=== PATIENT | male | born 1950 | race Caucasian/White ===

== ENCOUNTER 2016-08-28 10:38 | Outpatient (CLI) | payer MEDICARE, BC ==
[~2016-08-28] VITALS: Ht 177.8 cm; Wt 97.7 kg
--- NOTE | ~2016-08-28 | OP ---
PATIENT NAME: EILEEN SCHULER MEDICAL RECORD: [id number] :50 LOCATION:D.CAT ADMISSION DATE: SURGEON: CAYLA JUAREZ M.D. DATE OF OPERATION: 08/28/2016 REFERRING PHYSICIAN: Vipul Hernandez M.D. PROCEDURES PERFORMED: 1. Selective coronary angiography. 2. Aortic root injection. INDICATION: A 66-year-old gentleman presents with aortic stenosis. EQUIPMENT USED: A 5-Namibian JL4, Estevan right, pigtail catheter, AL1 catheter. TECHNIQUE: A 5-Namibian sheath was inserted in retrograde fashion in the right common femoral artery. Next, selective coronary angiography was performed in standard 5-Namibian JL4 and Estevan right. The aortic root injection was performed using pigtail catheter. The valve was crossed using an AL1 catheter and Roadrunner wire. CORONARY ANATOMY: 1. Left main: Left main trunk is large in caliber. It gives rise to the LAD and circumflex. There is no obstruction. 2. LAD: This is a large caliber vessel extending to the apex. The proximal vessel has an ulcerated 89% stenosis. 3. Circumflex: This vessel is moderate in caliber. The first lateral branch has mild irregularities of about 50%. However, the mid segment after the bifurcation point has a hazy 70% stenosis. 4. Right coronary: This vessel is moderate in caliber and dominant. The mid vessel has an eccentric 60% to 70% stenosis. 5. Aortic root: The aortic root appears to be normal in caliber. The aortic valve is heavily calcified. There is decreased movement in the leaflets. There is moderate to severe aortic insufficiency seen. 6. Left ventricle: A left ventriculogram was not performed. However, an AL1 catheter was crossed over to the ventricle using a Roadrunner wire. On pullback, there was a 75-80 mm gradient across the valve. IMPRESSION: 1. Three-vessel coronary artery disease. 2. Severe aortic stenosis by echo with moderate to severe aortic insufficiency on today's angiogram. RECOMMENDATIONS: We will likely proceed with coronary bypass grafting, aortic valve replacement. TRANSINT:[id number] Voice Confirmation ID: [id number] DOCUMENT ID: [id number] OPERATIVE REPORT [id number] EILEEN SCHULERCAYLA MATOS M.D. CC: [id number] DICTATION DATE: 08/28/16 1356 BUILDING CERTIFIER: 04/12/17 2008 DEP CLI 08/28/16 [id number] [place] [address]
--- NOTE | ~2016-08-28 | HEMODYNAMI ---
PATIENT:EILEEN SCHULER MEDICAL RECORD: [id number] : 50 LOCATION:DHOMER ADMISSION DATE: 08/28/16 Generatedon:08/28/201613:51 Patient name: EILEEN SCHULER Patient #: [id number] : 1950 Date of study: 08/28/2016 Page: Of Hemodynamic Procedure Report Patient Data Patient Demographics Procedure consent was obtained First Name: EILEEN Gender: Male Last Name: HARINI : 1950 Patient #: [id number] Age: 66 year(s) Race: Unknown SSN: [id number] Additional ID: [id number] Contact details [address]: [address] [place] [address] [address] [address] State: [place] City: [place] Zip code: [address] Past Medical History Allergies Allergen Reaction Date Comments Reported Other allergy 08/28/2016 Chlorpromazine Admission Admission Data Admission Date: 08/28/2016 Admission Time: 10:38 Arrival Date: 08/28/2016 Arrival Time: 0:00 Admit Source: Other Insurance Payor: Private health insurance, Medicare Height (in.): 62 BSA: 1.96 (m2) Height (cm.): 157.48 BMI: 38.96 (kg/m2) Weight (lbs.): 213 Weight (kg.): 96.62 Lab Results Lab Result Date: 08/28/2016 Lab Result Time: 0:00 Biochemistry Name Units Result Min Max BUN mg/dl 20 --(----)*- 7 18 Creatinine mg/dl 0.8 --(-*--)-- 0.6 1.3 CBC Name Units Result Min Max Hemoglobin g/dl 15.7 --(--*-)-- 13.5 17.5 Procedure Procedure Types Cath Procedure Diagnostic Procedure [facility] w/Coronaries Aortic Root Angiography Miscellaneous Procedures Moderate Sedation up to 15 minutes Procedure Description Procedure Date Procedure Date: 08/28/2016 Procedure Start Time: 13:23 Procedure End Time: 13:50 Procedure Staff Name Function Felipe Quiros MD Performing Physician Johnathon Álvarez RN Nurse Roxy Moreno RT Monitor Jose G Lo RT Scrub Procedure Data Cath Procedure Fluoroscopy Diagnostic fluoroscopy Total fluoroscopy Time: 5.6 time: 5.6 min min Diagnostic fluoroscopy Total fluoroscopy dose: dose: 1008 mGy 1008 mGy Contrast Material Contrast Material Type Amount (ml) Isovue 300 84 Entry Location Entry Primary Successful Side Size Upsize Upsize Entry Closure Succes sful Closure Location (Fr) 1 (Fr) 2 (Fr) Remarks Device Remarks Femoral Right 5 Fr Exoseal artery Estimated blood loss: 10 ml Diagnostic catheters Device Type Used For End Catheter Placement Cordis 5Fr JL 4.0 Procedure Catheter (MP) Cordis 5Fr 3DRC Catheter Procedure (MP) Cordis 5Fr Pigtail Aortic Root Catheter (MP) Angiography Diagnostic Infinity 5Fr Ventriculography AL 1 catheter Procedure Complications No complications Procedure Medications Medication Administration Route Dosage Oxygen NC 2 l/min Lidocaine 2% added to field 20 Heparin Flush Bag added to field 2 bags (1000units/500ml NS) 0.9% NaCl I.V. 100 ml/hr Versed I.V. 1 mg Fentanyl I.V. 50 mcg Versed I.V. 1 mg Fentanyl I.V. 50 mcg Versed I.V. 1 mg Versed I.V. 1 mg Hemodynamics Rest BSA: 1.96 (m2) HGB: 15.7 (g/dl) O2 Consumption: Estimated: 223.33 (ml/min) O2 Co nsumption indexed: Estimated:113.94 (ml/min/m) Heart Rate: 63 (bpm) Pressure Samples Time Site Value (mmHg) Purpose Heart Use Rate(bpm) 13:40 AO 118/74(92) Snapshot 32 13:45 LV 211/14,46 Snapshot 69 13:46 LV 209/16,39 EDP 73 13:46 AO 138/77(102) Pullback 74 13:46 LV 211/14,39 Pullback 74 Gradients Valve Time Site 1 Site 2 Mean SEP/DFP Peak To Heart Use (mmHg) (sec/min) Peak Rate (mmHg) (bpm) Aortic 13:46 LV AO 58 20 73 74 211/14,39 138/77(102) Calculations Valve P-P Mean Valve Index Valve Source Name Gradient Area Flow (cm2) Aortic 73 58 73 58 Snapshots Pre Cath Intra NCS Post Cath Vital Signs Time Heart Resp SPO2 NIBP (mmHg) Rhythm Pain Sedation Rate (ipm) (%) Status Level (bpm) 12:51:18 65 16 97 117/60(74) NSR 0 (11) 10(A) , No pain 12:55:33 63 16 97 109/61(82) NSR 0 (11) 10(A) , No pain 12:59:42 63 21 96 116/59(90) NSR 0 (11) 10(A) , No pain 13:03:52 70 18 96 130/65(96) NSR 0 (11) 10(A) , No pain 13:08:08 65 14 98 129/66(97) NSR 0 (11) 10(A) , No pain 13:12:24 64 15 98 120/66(102) NSR 0 (11) 10(A) , No pain 13:16:34 66 16 98 121/70(98) NSR 0 (11) 10(A) , No pain 13:20:44 69 16 97 122/71(90) NSR 0 (11) 9(A) , No pain 13:24:54 70 15 97 122/73(100) NSR 0 (11) 9(A) , No pain 13:29:02 70 16 96 121/75(95) NSR 0 (11) 9(A) , No pain 13:33:14 74 16 96 128/70(101) NSR 0 (11) 9(A) , No pain 13:37:28 74 15 96 116/70(92) NSR 0 (11) 9(A) , No pain 13:41:35 70 16 96 121/71(96) NSR 0 (11) 9(A) , No pain 13:46:33 75 17 96 115/71(95) NSR 0 (11) 10(A) , No pain Medications Time Medication Route Dose Verified Delivered Reason Notes Effe ctiveness by by 12:52:22 Oxygen NC 2 Felipe Buffie used for l/min Ishaan Álvarez engineer sergeant 12:52:33 Lidocaine 2% added 20ml Felipe Felipe for local to vial Ishaan Quiros MD anesthetic field 12:52:41 Heparin Flush added 2 Felipe Felipe used for Bag to bags Ishaan Quiros MD procedure (1000units/500ml field NS) 12:52:52 0.9% NaCl I.V. 100 Felipe Buffie Per ml/hr Ishaan Álvarez RN physician 13:15:07 Versed I.V. 1 mg Felipe Buffie for Ishaan Álvarez RN sedation 13:15:11 Fentanyl I.V. 50 Felipe Buffie for mcg Ishaan Álvarez RN sedation 13:18:45 Versed I.V. 1 mg Felipe Buffie for Ishaan Álvarez RN sedation 13:18:50 Fentanyl I.V. 50 Felipe Buffie for mcg Ishaan Álvarez RN sedation 13:25:39 Versed I.V. 1 mg Felipe Buffie for Ishaan Álvarez RN sedation 13:45:44 Versed I.V. 1 mg Felipe Buffie for Ishaan Álvarez RN sedation Procedure Log Time Note 12:39:35 Patient Height : 157.48 cm 12:39:40 Patient Weight : 96.62 kg 12:39:40 Admit Source: Other 12:39:42 Arrival Date: 08/28/2016 12:00:00 AM 12:39:51 Insurance Payor : Private health insurance, Medicare 12:40:08 Diagnostic Cath Status : Elective 12:40:45 Johnathon Álvarez RN sent for patient. Start room use. 12:40:47 Time tracking: Regular hours 12:40:52 Plan of Care:Hemodynamics will remain stable., Cardiac rhythm will remain stable., Comfort level will be maintained., Respiratory function will remain adequate., Patient/ family verbilizes understanding of procedure., Procedure tolerated without complication., Recovers from procedure without complications.. 12:43:04 Patient received from Pre/Post Procedure Room to CCL 2 Alert and oriented. Tansferred to table in Supine position. 12:43:06 Warm blankets applied, and marty hugger turned on for patient comfort. 12:43:06 Correct patient and procedure confirmed by team. 12:43:08 Signed procedure consent form obtained from patient. 12:43:24 H&P Date Dictated: 08/21/2016 Within 30 days and on chart., H&P Addendum completed by physician on day of procedure. (MUST COMPLETE FOR ALL OUTPATIENTS). 12:43:28 Pre-procedure instructions explained to patient. 12:43:30 Family in waiting room. 12:43:35 Patient NPO since Midnight. 12:44:01 Patient allergic to Other allergyChlorpromazine 12:44:05 Is the patient allergic to Iodine/contrast media? No. 12:50:09 ECG and BP/O2 sat monitors applied to patient. 12:50:10 Vital chart was started 12:50:11 Baseline sample Acquired. 12:50:17 Rhythm: sinus rhythm 12:50:18 Full Disclosure recording started 12:52:22 Oxygen 2 l/min NC was administered by Johnathon Álvarez RN; used for procedure; 12:52:33 Lidocaine 2% 20ml vial added to field was administered by Felipe Quiros MD; for local anesthetic; 12:52:41 Heparin Flush Bag (1000units/500ml NS) 2 bags added to field was administered by Fleipe Quiros MD; used for procedure; 12:52:52 0.9% NaCl 100 ml/hr I.V. was administered by Johnathon Álvarez RN; Per physician; 12:55:39 Is patient on blood thinner?No 12:55:42 Patient diabetic? No. 12:55:47 Snore? No 12:55:48 Sleep apnea? No 12:55:52 Dentures? No ? 12:56:01 Patient pain scale 0/10 ?. 12:56:29 IV patent on arrival in left forearm with 0.9% NaCl at [facility]. 12:56:48 Lab results completed and on chart. 12:56:53 Right groin area was prepped with chlora-prep and draped in sterile fashion 12:56:55 Alarms reviewed by R. N. 12:57:00 Sharps counted by scrub and verified by R.N. 12:57:00 Physician paged 12:58:30 Physician arrived 12:59:39 Lab Result : Creatinine 0.8 mg/dl 12:59:39 Lab Result : BUN 20 mg/dl 12:59:39 Lab Result : Hemoglobin 15.7 g/dl 13:00:30 Right groin site verified by team. 13:00:35 Physical assessment completed. ASA score P 2 - A patient with mild systemic disease as per Felipe Quiros MD. 13:00:40 Sedation plan: IV Moderate Sedation Versed, Fentanyl 13:00:47 Use device set Femoral Dx 13:00:48 Acist Syringe opened to sterile field. 13:00:48 Bag Decanter opened to sterile field. 13:00:49 Medline Cath Pack opened to sterile field. 13:00:49 Terumo 5Fr [place] Sheath opened to sterile field. 13:00:49 [place] 260cm J .035 wire opened to sterile field. 13:00:51 Acist Hand Control opened to sterile field. 13:00:52 Acist Manifold opened to sterile field. 13:00:52 Diagnostic Infinity 5Fr Multipack catheter opened to sterile field. 13:00:53 Tegaderm 4 x 4 opened to sterile field. 13:04:01 Zero performed for pressure channel P1 13:04:15 Zero performed for pressure channel P1 13:04:21 Zero performed for pressure channel P1 13:14:26 --------ALL STOP TIME OUT------ 13:15:07 Versed 1 mg I.V. was administered by Johnathon Álvarez RN; for sedation; 13:15:11 Fentanyl 50 mcg I.V. was administered by Johnathon Álvarez RN; for sedation; 13:18:45 Versed 1 mg I.V. was administered by Johnathon Álvarez RN; for sedation; 13:18:50 Fentanyl 50 mcg I.V. was administered by Johnathon Álvarez RN; for sedation; 13:23:22 Procedure started. 13:23:25 Local anesthetic to right femoral artery with Lidocaine 2% by Felipe Quiros MD.INITIAL ACCESS ONLY 13:25:39 Versed 1 mg I.V. was administered by Johnathon Álvarez RN; for sedation; 13:25:48 A 5 Fr sheath was inserted into the Right Femoral artery 13:26:05 A Cordis 5Fr JL 4.0 Catheter (MP) was advanced over the wire and used for Procedure. 13:27:20 LCA angiography performed. 13:27:53 Catheter removed. 13:28:02 A Cordis 5Fr 3DRC Catheter (MP) was advanced over the wire and used for Procedure. 13:29:30 Catheter removed. 13:29:47 A Cordis 5Fr Pigtail Catheter (MP) was advanced over the wire and used for Aortic Root Angiography. 13:31:54 Aortic Root visualized 13:32:25 Catheter removed. 13:32:43 A Diagnostic Infinity 5Fr AL 1 catheter was advanced over the wire and used for Ventriculography. 13:32:45 Cook Bentson 260cm 0.035 guide wire opened to sterile field. 13:44:[address] RO[address]NER 260 .035 glide wire opened to sterile field. 13:44:55 Bentson unable to cross valve, exchanged for Roadrunner. 13:45:44 Versed 1 mg I.V. was administered by Johnathon Álvarez RN; for sedation; 13:46:43 LV hemodynamics recorded. 13:46:59 Catheter removed. 13:47:10 Sheath removed intact; hemostasis achieved with Exoseal to the Right Femoral artery. 13:47:19 Cordis 5Fr Exoseal opened to sterile field. 13:47:21 Procedure ended.(Physican Out) 13:47:34 Fluoroscopy time 05.60 minutes. 13:47:41 Fluoroscopy dose: 1008 mGy 13:47:41 Flurop Dose total: 1008 13:47:46 Contrast amount:Isovue 300 84ml. 13:47:48 Sharps counted by scrub and verified by R.N. 13:47:49 Insertion/operative site no bleeding no hematoma. 13:47:53 Post right femoral artery:stable 13:47:56 Post Procedure Pulses reassessed and unchanged 13:48:02 Post procedure rhythm: unchanged. 13:48:05 Estimated blood loss: 10 ml 13:48:07 Post procedure instruction explained to patient.Patient verbalizes understanding. 13:48:54 Procedure type changed to Cath procedure, Diagnostic procedure, LHC, LHC w/Coronaries, Aortic Root Angiography, Miscellaneous Procedures, Moderate Sedation up to 15 minutes 13:49:20 Procedure and supply charges have been captured, reviewed, submitted and are correct. 13:49:45 Procedure Complication : No complications 13:49:47 Vital chart was stopped 13:49:49 See physician's report for complete and final results. 13:49:53 Report given to Pre/Post Procedure Room. 13:50:03 Patient transfered to Pre/Post Procedure Room with Stretcher. 13:50:06 Procedure ended. 13:50:06 Full Disclosure recording stopped 13:50:15 End room use (Document Last) Device Usage Item Name Manufacture Quantity Catalog Hospital Part Current Minimal Lo t# / Number Charge Number Stock Stock Serial# Code [facility] 1 [id number] 753889 227922 899612 20 Syringe Medical Systems Inc Bag Microtek 1 2002S 770644 36528 143030 5 Decanter Medical Inc. Medline Cardinal 1 [id number] 885201 45388 307302 5 Cath Pack Health Terumo 5Fr Terumo 1 [id number] 058922 770346 009077 [address] [place] 1 864462 778468 344286 618124 30 260cm J .035 wire Acist Hand Acist 1 65327 267387 872076 719089 5 Control Medical Systems Inc Acist Acist 1 68885 055899 830312 916365 5 Manifold Medical Systems Inc Diagnostic Cardinal 1 [id number] 727542 30010 061024 30 Infinity Health 5Fr Multipack catheter Tegaderm 4 3M 1 1626W 148893 830869 827927 5 x 4 Cordis 5Fr Cardinal 1 673790 5 JL 4.0 Health Catheter (MP) Cordis 5Fr Cardinal 1 745479 5 3DRC Health Catheter (MP) Cordis 5Fr Cardinal 1 205137 5 Pigtail Health Catheter (MP) Diagnostic Cardinal 1 193242T 197784 849404 535422 15 Ballooning Nest Eggsity Health 5Fr AL 1 catheter Cook Cook Medical 1 Z76885 463759 472542 671918 4 Bentson 260cm 0.035 guide wire Cook Cook Medical 1 [id number] 847734 089282 5 RO[address] 260 .035 glide wire Cordis 5Fr Cardinal 1 EX500 736878 326492 147139 10 TripConnect Health Signature Audit Vance Stage Time Signature Unsigned Intra-Procedure 08/28/2016 Roxy Moreno 1:51:26 PM RT(R) Signatures Monitor : Roxy Moreno Signature : RT Date : Time : [facility] [address] [place] [address]
[2016-08-28] MEDS ORDERED: INVOKANA300 MG PO (11:13)
[2016-08-28] MEDS ORDERED: ZETIA10 MG PO (11:14)
[2016-08-28] MEDS ORDERED: ZOCOR40 MG PO (11:14)
[2016-08-28] MEDS ORDERED: GLUCOVANCE 5/501 TAB PO (11:15)
[2016-08-28] MEDS ORDERED: ACCUPRIL20 MG PO (11:15)
[2016-08-28 11:22] VITALS: BP 109/54; Ht 177.8 cm; Wt 97.7 kg
[2016-08-28 11:39] LABS: BASOPHILS 0.5 % (0.0-2.0); EOSINOPHILS 3.7 % (0-7); HEMATOCRIT 46.6 % (42.0-54.0); HEMOGLOBIN 15.7 g/dL (13.5-17.5); IMMATURE GRANULOCYTES 0.2 % (0-5); LYMPHOCYTES 26.8 % (15-50); MCH 31.5 pg (26.0-34.0); MCHC 33.7 g/dL (31.0-37.0); MCV 93.4 fL (80.0-100.0); MEAN PLATELET VOLUME 12.1 fL (7.4-10.4); MONOCYTES 8.1 % (2-11); NEUTROPHILS 60.7 % (40-80); PLATELET COUNT 152 10x3/uL (130-400); RBC 4.99 10x6/uL (4.20-6.10); RDW 12.6 % (11.5-14.5); WBC 6.2 10x3/uL (4.8-10.8)
[2016-08-28 12:09] LABS: CALC OSMOLALITY 276 mosm/kg (275-300); CALCIUM 9.3 mg/dL (8.5-10.1); CARBON DIOXIDE 23.3 mmol/L (21.0-32.0); CHLORIDE - SERUM 102 mmol/L (98-107); CREATININE - SERUM 0.8 mg/dL (0.6-1.3); GLUCOSE 177 mg/dL (74-106); POTASSIUM - SERUM 4.6 mmol/L (3.5-5.1); SODIUM 135 mmol/L (136-145); UREA NITROGEN 20 mg/dL (7-18); eGFR NON AFRICAN AMERICAN > 90 mL/min (90-120)
--- NOTE | 2016-08-28 15:46 | NUR ---
1415-RIGHT GROIN -CDI, NO HEMATOMA OR BLEEDING NOTED, SOFT TO TOUCH 1445-NO CHANGE IN RIGHT GROIN, RESTING WITH FAMILY AT SIDE
== END 2016-08-28 16:30 | disposition home or self-care (01) ==
LOC: D.CATH 10:38
PROVIDERS: Internal Medicine Cardiovascular Disease
DX: I35.2 Nonrheumatic aortic (valve) stenosis with insufficiency (principal); I25.10 Atherosclerotic heart disease of native coronary artery without angina pectoris

== ENCOUNTER → 2016-09-02 14:01 | Outpatient (CLI) | payer MEDICARE, BC ==
[2016-08-28 11:22] VITALS: BMI 30.9
[~2016-09-02 14:01] MED LIST: ACCUPRIL20 MG PO; GLUCOVANCE 5/501 TAB PO; INVOKANA300 MG PO; ZETIA10 MG PO; ZOCOR40 MG PO
[2016-09-03 10:19] LABS: HEPATITIS C ANTIBODY <0.1 (0.0-0.9)
== END | disposition home or self-care (01) ==
LOC: D.LAB 14:01
PROVIDERS: Internal Medicine Cardiovascular Disease
DX: Z01.812 Encounter for preprocedural laboratory examination (principal)

== ENCOUNTER 2016-09-11 06:06 | Inpatient (IN) | payer MEDICARE, BC ==
--- NOTE | 2016-09-07 12:23 | HP ---
PATIENT: EILEEN SCHULER MEDICAL RECORD: [id number] ACCOUNT: [id number] LOCATION:[facility] : 50 ADMISSION DATE: 09/11/16 HISTORY AND PHYSICAL EXAMINATION EILEEN Castro (66yo, M) ID# [id number]. Date/Time09/02/2016 10:[id number] Dept[facility] ClinicProviderEDJERRY SARABIA MDInsuranceMed Primary[place] Insurance # : [id number] Referring Provider Name : DARIA AJ Employer Name : UNKNOWN Med Secondary: [place]LE[place]) Insurance # : [id number] Employer Name : UNKNOWN Prescription: CMX - Member is eligible. Chief Complaint Aortic stenosis, Coronary artery disease Patient's Care Team Referring Provider (): DARIA AJ: [address] [id number], , Brineyard Supervisor: CAYLA JUAREZ MD: [address] [place] [id number], , Vitals BP:120/70 sitting R arm 09/02/2016 12:22 pm 110/70 sitting L arm 09/02/2016 12:22 pmHR:80R/R 09/02/2016 12:22 pmHt:5 ft 10 in 09/02/2016 12:20 pmWt:215 lbs 09/02/2016 12:20 pmNotes:Murmur 09/02/2016 12:22 pmBMI:30.8 09/02/2016 12:20 pmAllergies Reviewed Allergies CHLORPROMAZINEMedications Reviewed Medications ciprofloxacin 500 mg /29/16 filledCaremarkdiphenoxylate-atropine 2.5 mg-0.025 mg reetpz97/29/16 filledCaremarkInvokana 300 mg ajezbo19/06/17 filledCaremarkquinapril 20 mg ujlcni21/01/17 filledCaremarksimvastatin 40 mg kppseq75/01/17 filledCaremarkZetia 10 mg kebzhu89/02/17 filledCaremarkProblems Reviewed Problems Coronary arteriosclerosis - Onset: 09/02/2016 Aortic valve stenosis - Onset: 09/02/2016 Family History Discussed Family History Father- Coronary arteriosclerosisSister- Coronary arteriosclerosisBrother- Coronary arteriosclerosisSocial History Discussed Social History Cardiology Family history of heart disease?: Y Smoking Status: Former smoker High Cholesterol: Y High blood pressure: Y Diabetes: Y Diet: Diabetic Is blood transfusion acceptable in an emergency?: Y Surgical History Reviewed Surgical History pt states "none" Past Medical History Discussed Past Medical History Chest Pain: Y Coronary Artery Disease: Y Diabetes: Y Heart Disease: Y Heart Murmur: Y Hyperlipidemia: Y Valve disease: Y - Aortic stenosis Documents for Discussion N/A Screening None recorded. HPI Coronary Artery Disease F/U Reported by patient. Severity: symptoms are improving; no chest discomfort with daily activities; has not needed to use Nitroglycerin Context: non-smoker Associated Symptoms: no chest pain; HISTORY AND PHYSICAL [id number] EILEEN SCHULER no neck pain; no left arm pain; no dyspnea with exertion; no sweating; no nausea; no stress Valvular Heart Disease Reported by patient. Context: aortic stenosis Associated Symptoms: none severe aortic stenosis severe coronary artery disease ROS Patient reports exercise intolerance but reports no fever, no night sweats, no significant weight gain, and no significant weight loss. He reports arthralgias/joint pain but reports no muscl e aches, no muscle weakness, no back pain, and no swelling in the extremities. He reports no dry eyes, no irritation, and no vision change. He reports no difficulty hearing and no ear pain. He reports no frequent nosebleeds and no nose/sinus problems. He r eports no sore throat, no bleeding gums, no snoring, no dry mouth, no mouth ulcers, no oral abnormalities, and no teeth problems. He reports no jugular vein distension and no swollen glands. He reports no chest pain, no arm pain on exertion, no shortness o f breath when walking, no shortness of breath when lying down, no palpitations, and no known heart murmur. He reports no cough, no wheezing, no shortness of breath, and no coughing up blood. He reports no abdominal pain, no vomiting, normal appetite, no d i arrhea, not vomiting blood, no nausea, and no constipation. He reports no incontinence, no difficulty urinating, no hematuria, and no increased frequency. He reports no abnormal mole, no jaundice, and no rashes. He reports no loss of consciousness, no wea k ness, no numbness, no seizures, no dizziness, and no headaches. He reports no depression, no sleep disturbances, feeling safe in relationship, and no alcohol abuse. He reports no fatigue. He reports no swollen glands and no bruising. He reports no runny n ose, no sinus pressure, no itching, no hives, and no frequent sneezing. ROS as noted in the HPI Physical Exam Patient is a 66-year-old male. Constitutional: General Appearance well nourished and developed and healthy-appearing. Level of Distress NAD. Ambulation ambulating normally. Cardiovascular: Apical Impulse not displaced or no thrill. Heart Auscultation normal s1 and s2, no rubs or gallops, and RRR and murmur (aortic stenosis). Arterial Pulses no abdominal aorta bruits, femoral bruits, or popliteal bruits and 2+ bilateral, carotid 2+ bilateral, femoral 2+ bilateral, popliteal 2+ bilateral, and dorsalis pedis 2+ bilateral. Edema no edema or varicosities. Lungs: Repiratory Effort no dyspnea. Percussion no hyperresonance or dullness or flatness. Auscult ation no wheezing, rhonchi, or rales / crackles and breathing sounds normal, good air movement, and CTA except as noted. Abdomen: Bowl Sounds normal. Inspection and Palpation no tenderness, guarding, masses, or rebound tenderness and soft and non-distended. Liver non-tender and no hepatomegaly. Spleen non-tender and no splenomegaly. Hernia none palpable. Musculoskeletal System: Gait And Stance normal gait and stance. Digits and Nails normal nails and no cyanosis. Neurologic: Cranial Nerves grossly intact. Reflexes DTRs 2+ bilaterally throughout. Sensation grossly intact. Lymph Nodes: Lymph Nodes no cervical LAD, supraclavicular LAD, axillary LAD, or HISTORY AND PHYSICAL [id number] EILEEN SCHULER inguinal LAD. Eyes: Lids and Conjunctivae no discharge or pallor and non-injected. Pupils PERRLA. Cornea grossly intact. EOM EOMI. Lens clear. Sclerae non-icteric. Neck: Neck no masses or enlarged lymph nodes and supple, trachea midline, and carotid bruits (transmitted aortic murmur). Thyroid no enlargement or nodules and non-tender. Skin: Inspection and Palpation no rash, lesions, ulcers, jaundice, or abnormal nevi. Assessment / Plan aortic valve replacement Coronary artery bypass 1. Aortic valve stenosis I35.0: Nonrheumatic aortic (valve) stenosis AORTIC VALVE STENOSIS: CARE INSTRUCTIONS 2. Coronary arteriosclerosis I25.10: Atherosclerotic heart disease of [place] coronary artery without angina pectoris Discussion Notes I have discussed his disease process with him in detail as well as the alternative methods of treatment have discussed aortic valve replacement and coronary artery bypass including the expected benefits and risk which included bleeding, infection, stroke, loss of limb, and . We also discussed the imponderables of an operation and risk. We discussed the convalescence and the expected benefits. He would like to proceed with planned procedure. RAUDEL SARABIA MD at 1223 CC: [id number] DICTATION DATE: 09/02/16 1050 OCCUPATIONAL THERAPIST PER DIEM: YUN 09/03/16 0945 PRE IN [facility] [address] [place] [address]
[2016-09-10 14:38] LABS: BASOPHILS 0.3 % (0-2); EOSINOPHILS 3.5 % (0-7); HEMATOCRIT 46.8 % (42.0-54.0); HEMOGLOBIN 15.9 g/dL (13.5-17.5); IMMATURE GRANULOCYTES 0.2 % (0-5); MCH 31.6 pg (26.0-34.0); MEAN PLATELET VOLUME 12.6 fL (7.4-10.4); MONOCYTES 7.2 % (2-11); NEUTROPHILS 63.8 % (40-80); PLATELET COUNT 160 10x3/uL (130-400); RBC 5.03 10x6/uL (4.20-6.10); RDW 12.5 % (11.5-14.5); WBC 6.6 10x3/uL (4.8-10.8)
[2016-09-10 14:55] LABS: APTT 22.9 SECONDS (22.8-39.4); INR 0.89 (0.85-1.17); PROTIME 11.8 SECONDS (11.6-15.0)
[2016-09-10 15:05] LABS: APPEARANCE CLEAR (CLEAR); BILIRUBIN NEGATIVE (NEGATIVE); COLOR YELLOW (YELLOW); GLUCOSE 500 mg/dL (NEGATIVE); KETONE NEGATIVE (NEGATIVE); LEUKOCYTE ESTERASE NEGATIVE (NEGATIVE); NITRITE NEGATIVE (NEGATIVE); PROTEIN NEGATIVE (NEGATIVE); SPECIFIC GRAVITY 1.015 (1.005-1.020); UROBILINOGEN NORMAL (NORMAL)
[2016-09-10 15:15] LABS: ALKALINE PHOSPHATASE 45 U/L (46-116); ALT (SGPT) 19 U/L (10-68); BILIRUBIN - TOTAL 0.31 mg/dL (0.2-1.3); CALC OSMOLALITY 286 mosm/kg (275-300); CALCIUM 9.3 mg/dL (8.5-10.1); CARBON DIOXIDE 25.8 mmol/L (21.0-32.0); CHLORIDE - SERUM 103 mmol/L (98-107); CHOLESTEROL, TOTAL 164 mg/dL (0-200); PHOSPHOROUS 4.1 mg/dL (2.5-4.9); POTASSIUM - SERUM 4.1 mmol/L (3.5-5.1); PROTEIN - SERUM 7.4 g/dL (6.4-8.2); SODIUM 139 mmol/L (136-145); T4 THYROXIN - FREE 0.87 ng/dL (0.76-1.46); THYROID STIMULATING HORMONE 1.73 uIU/mL (0.36-3.74); UREA NITROGEN 18 mg/dL (7-18); URIC ACID 4.3 mg/dL (2.6-7.2); eGFR NON AFRICAN AMERICAN 79 mL/min (90-120)
[2016-09-10 15:16] LABS: GLUCOSE 225 mg/dL (74-106)
[2016-09-10 15:27] LABS: HEMOGLOBIN A1C 7.6 % (4.8-6.0)
[2016-09-10 15:52] LABS: COLD SCREEN @ 4 DEGREES 1+ (NEGATIVE); COLD SCREEN ROOM TEMP NEGATIVE (NEGATIVE)
[2016-09-11] VITALS (27 sets, daily range): BP systolic 92–130; BP diastolic 56–76; BMI 29.8
[~2016-09-11] VITALS: Ht 177.8 cm; Wt 108.2 kg
[~2016-09-11 06:06] MED LIST changes: +CENTRUM MEN'S1 EACH PO; +FISH OIL 1,0001 CA1 PO; +LOW DOSE ASPIRI81 M1 PO; +NIASPAN500 MG PO; +VITAMIN B COMPL1 TAB PO; +VITAMIN E600 UNIT PO
[2016-09-11 07:47] LABS: PLT FUNCT.(P2Y12) PLAVIX 259 PRU (194-418)
[2016-09-11 17:19] LABS: HEMOGLOBIN 9.3 g/dL (13.5-17.5); MCH 30.9 pg (26.0-34.0); MCHC 33.2 g/dL (31.0-37.0); MEAN PLATELET VOLUME 11.7 fL (7.4-10.4); PLATELET COUNT 56 10x3/uL (130-400); RBC 3.01 10x6/uL (4.20-6.10); RDW 12.5 % (11.5-14.5)
[2016-09-11 17:29] LABS: PLATELET ESTIMATE DECREASED
[2016-09-11 17:31] LABS: APTT 40.2 SECONDS (22.8-39.4); INR 1.72 (0.85-1.17); PROTIME 20.2 SECONDS (11.6-15.0)
[2016-09-11 17:35] LABS: CREATININE - SERUM 0.8 mg/dL (0.6-1.3); SODIUM 155 mmol/L (136-145); eGFR NON AFRICAN AMERICAN > 90 mL/min (90-120)
[2016-09-11 17:40] LABS: CALC OSMOLALITY 307 mosm/kg (275-300); GLUCOSE 117 mg/dL (74-106); POTASSIUM - SERUM 3.1 mmol/L (3.5-5.1); UREA NITROGEN 12 mg/dL (7-18)
[2016-09-11 17:43] LABS: CALCIUM 5.6 mg/dL (8.5-10.1); CHLORIDE - SERUM 119 mmol/L (98-107)
--- NOTE | 2016-09-11 17:43 | NUR ---
PT ARRIVED BY BED FROM OR. SWITCHED TO ICU MONITORS. PT'S TEMP 36.2 DEGREES CELCIUS. PLACED ON BARIHUGGER. BILATERAL SOFT WRIST RESTRAINTS APPLIED AFTER ARRIVAL. WAITING ON FFP TO THAW FROM LAB TO INFUSE. MODERATE AMOUNT OF BLOODY DRAINAGE NOTED IN ANTERIOR CHEST TUBE. DR. SARABIA AWARE AND DR. MULTANI WITH ANESTHESIA AT BEDSIDE.
--- NOTE | 2016-09-11 18:15 | NUR ---
DR. SARABIA AT BEDSIDE WITH PT'S FAMILY. UPDATED THEM ON PT'S STATUS.
--- NOTE | 2016-09-11 19:10 | NUR ---
CALLED [facility]ANNA[facility] BELLAMY APN, INFORMED OF CONSULT FOR PT WITH DR. AJ, "DR. AJ WILL SEE HIM TOMORROW."
[2016-09-11 19:14] LABS: HEMATOCRIT 32.2 % (42.0-54.0); MCH 30.6 pg (26.0-34.0); MCHC 34.2 g/dL (31.0-37.0); MEAN PLATELET VOLUME 10.9 fL (7.4-10.4); RBC 3.59 10x6/uL (4.20-6.10); RDW 14.1 % (11.5-14.5)
--- NOTE | 2016-09-11 19:14 | NUR ---
SPOKE WITH DR. VEE TO INFORM OF CONSULT, "WILL SEE HIM TOMORROW, THANK YOU."
[2016-09-11 19:19] LABS: MCV 89.7 fL (80.0-100.0); WBC 9.6 10x3/uL (4.8-10.8)
--- NOTE | 2016-09-11 19:20 | NUR ---
REPORT RECIEVED. ASSESSMENT COMPLETE. DR SARABIA AT BEDSIDE. NO NEW ORDERS. PT AWAKE FOLLOWS SIMPLE COMMNADS DENIES PAIN. EYES PERRLA 3MM BRISK. ETT OGT TAPED SECURED OGT PATENT VIA AUSCULTATION. OGT TO LIS, HERNANDEZ BILE NOTED. ETT 7.0 23 AT LIP VENT A/C FIO2 75% RR 18 SET RATE OF 14. TV 700 PEEP 12. O2 SAT 100% RUL RML DIONICIO FINE CRACKLES HEARD, BILAT LOWER LOBES DEMINISHED. R JUGULAR [place] PATENT DRSG CDI AT 50, LOCKED AND SECURED. R SUBCLAVIAN CVL PATENT REFER TO FLOW SHEET FOR INFUSIONS. DRSG CDI. R RADIAL A LINE PATENT STRONG BRACHIAL PULSE PRESENT +2 EXTREMETY PINK WITH GOOD SENSATION WRIST PROTECTOR ON, GOOD WAVEFORM BP 101/62. MIDSTERNAL DRSG CDI SUBSTERNAL DRSG TPM WIRE SITE SECURED VVI 50 V[address] X3 PATENT BLOODY DRAINAGE NOTED NO AIRLEAK NOTED AT THIS TIME. R LEG DRSG PATENT ROBERT X2 NOTED BLOODY DRAINGE NOTED, COMPRESSED. BILAT PEDAL PULSES PALP +2. NO EDEMA NOTED X4 EXTREMETIES. BS HYPOACTIVE X4 ABD DISTENDED. ROSAS PATENT ALEXIA URINE NOTED. TEMP VIA ROSAS 37.2 DEGREES CELCIUS.
--- NOTE | 2016-09-11 20:30 | NUR ---
DR SARABIA UPDATE VIA T. NEW ORDERS RECIEVED.
[2016-09-11 20:32] LABS: PROTIME 15.4 SECONDS (11.6-15.0)
[2016-09-11 20:33] LABS: INR 1.23 (0.85-1.17)
--- NOTE | 2016-09-11 21:20 | NUR ---
FAMILY AT BEDSIDE. GIVEN UPDATE.
--- NOTE | 2016-09-11 23:14 | NUR ---
ABGS REVIEWED. POTASSIUM 3.7 TREATED.
--- NOTE | 2016-09-11 23:18 | NUR ---
REASSESSMENT COMPLETE PER FLOW SHEET. VSS. PT RESTING COMFORTABLY. VENT SETTINGS NOW SIMV RATE OF 10 FIO2 40% PEEP 10 PS 10 TV 700 O2 SAT 98% PT RR 13. NO FURTHER NEW FINDINGS AT THIS TIME. WILL CONTINUE TO MONITOR.
[2016-09-12] VITALS (89 sets, daily range): BP systolic 98–136; BP diastolic 47–64; Ht 177.8 cm; Wt 108.2 kg
--- NOTE | 2016-09-12 02:59 | NUR ---
ABG REVIEWED. CPAP TRIALS STARTED. TOLERATING WELL. ELECTROLYTES REVIEWED. POTASSIUM 3.3. POTASSIUM ADM PER PROTOCOL. NEEDS MET.
--- NOTE | 2016-09-12 03:28 | NUR ---
REASSESSMENT COMPLETE PER FLOW SHEET NO NEW FINDINGS. PT TOLERATING CPAP WELL. RESTING COMFORTABLY. WILL CONTINUE TO MONITORL
--- NOTE | 2016-09-12 04:30 | NUR ---
PT EXTUBATED WITHOUT DIFFICULTY. RESTRAINTS REMOVED. VSS. WILL CONTINUE TO MONITOR.
--- NOTE | 2016-09-12 05:04 | NUR ---
EXTUBATION TIME 0430. TOLERATES WELL. IS ENCOURAGED GOAL 1250 MET. STRONG PRODUCTIVE COUGH PRESENT. SUPPOSITORY TYLENOL ADM FOR TEMP OF 38.8 C VIA ROSAS. GIVEN ICE CHIPS TOLERATES WELL. FAMILY GIVEN UPDATE AT BEDSIDE. NEEDS EMT
--- NOTE | 2016-09-12 05:35 | NUR ---
PROOF SORTER STARTED PT EDUCATION GIVEN. STATES UNDERSTANDING. VSS NO NEW CHANGES. O2 VIA NC 5L O2 SAT 96% RR 14 NONLABORED. WILL CONTINUE TO MONITOR WILL CONTINUE TO MONITOR.
--- NOTE | 2016-09-12 05:57 | NUR ---
POTASSIUM REVIEWED FROM AM ABG 3.5 WILL ADM REPLACEMENT K PER ORDER.
[2016-09-12 06:17] LABS: MCHC 34.1 g/dL (31.0-37.0); MCV 87.9 fL (80.0-100.0); MEAN PLATELET VOLUME 11.3 fL (7.4-10.4); RBC 2.9 10x6/uL (4.20-6.10); RDW 15.4 % (11.5-14.5)
[2016-09-12 06:27] LABS: HEMATOCRIT 25.5 % (42.0-54.0); HEMOGLOBIN 8.7 g/dL (13.5-17.5); WBC 4.9 10x3/uL (4.8-10.8)
[2016-09-12 06:56] LABS: ALBUMIN 3.2 g/dL (3.4-5.0); BILIRUBIN - TOTAL 1.53 mg/dL (0.2-1.3); CALCIUM 8.6 mg/dL (8.5-10.1); CARBON DIOXIDE 27.9 mmol/L (21.0-32.0); CREATININE - SERUM 1.2 mg/dL (0.6-1.3); POTASSIUM - SERUM 3.9 mmol/L (3.5-5.1); PROTEIN - SERUM 5.3 g/dL (6.4-8.2)
--- NOTE | 2016-09-12 07:00 | NUR ---
REC'D CARE OF PT. A&O X3.
--- NOTE | 2016-09-12 07:21 | NUR ---
GIVING 5 MEQ OF KCL VIA BURETROL AT DISTAL PORT OF [place] FOR A K LEVEL OF 3.9
--- NOTE | 2016-09-12 07:23 | NUR ---
TAKING SIPS OF H20 WITHOUT DIFFICULTY.
--- NOTE | 2016-09-12 07:24 | NUR ---
PULLING 1250 ON IS
--- NOTE | 2016-09-12 07:24 | NUR ---
INITIAL ASSESSMENT COMPLETED. A&O X3. ON 4L O2 VIA NC SATTING 94%. RR 20 EVEN AND UNLABORED. NO DISTRESS. RIGHT IJ SG. LOCKED X2 AT 50 CM. WEDGE SYRINGE IS LOCKED. BURETROL WITH KCL AND MORPHINE TELEHEALTH COORDINATOR, 1 MG Q 10 MIN, 24 MG Q 4H LO AT DISTAL PORT OF RIGHT IJSG. DOOPAMINE AND PLASMALYTE INFUSING AT PROXIMAL INFUSION PORT OF SG. ZINACEF AND INSULIN INFUSING AT RIGHT SCDL SEPERATED BY THREE PRONG ADAPTER.NEOSYNEPHERINE INFUSING INDEPENDENTLY AT PROXIMAL INJECTATE PORT OF SG. CVP LEVELED AND ZEROED. BEING MONITORED AT RIGHT IJSG PROXIMAL INJECTATE PORT. RIGHT RADIAL VAL. LEVELED AND ZEROED. BP WITHIN ESTABLISHED PARAMETERS. WRIST PROTECTOR IN PLACE. DRSG AT RIGHT IJSG AND RIGHT SCDL CD&I. BIOPATCH IN PLACE X2. ORANGE STERILE CAPS IN PLACE. MIDSTERNAL DRSG CD&I. MEDIASTINAL CT X2 TO 20 CM SUCTION. NO AIR LEAKS. LEFT PLEURAL CT TO 20 CM SUCTION. NO AIR LEAKS. INDICATOR + FOR SUCTION AT ATRIUM CONTAINER X3. BLOODY DRAINAGE PRESENT AT CT CONTAINERS. TEMP PACER VVI 50, VMA 10, SENSITIVITY 2.0. SENSING ONLY. PACER WIRES PROP SECURED X2 DRSG CD&I. BIOPATCH SECURED AT ENTRY SITE X2. RIGHT LEG HARVEST SITES WITH COBAN DRSG CD&I. ROBERT DRAIN X2 AT RIGHT LEG, STRIPPED. BLOODY DRAINAGE IN BOTH BULBS. BULBS COMPRESSED X2. CRITICORE ROSAS TO GRAVITY WITH CL Y URINE PRESENT. GREATER THAN 50CC PER HOUR. TEDS, SCD'S. MCCOY. FOLLOWS COMMANDS. PPP. SEE FLOW SHEET FOR ADDITIONAL ASSESSMENT.
--- NOTE | 2016-09-12 08:42 | NUR ---
DR. SARABIA AT BEDSIDE. WEAN KOFI OFF THEN DOPAMINE.
--- NOTE | 2016-09-12 08:59 | NUR ---
TEACHING DONE ON IMPORTANCE OF PAIN CONTROL. IF PAIN IS NOT UNDER CONTROL HE WILL NOT COUGH AND DEEP BREATH THE WAY HE SHOULD. ENCOURAGED USE OF MORPHINE CHANGER FIXER.
--- NOTE | 2016-09-12 09:07 | NUR ---
PULLS [phone] ON IS. ENCOURAGED COUGH AND DEEP BREATHING. ENCOURAGED USE OF RECEPTION.
--- NOTE | 2016-09-12 09:08 | NUR ---
FAMILY AT BEDSIDE. UPDATED.
--- NOTE | 2016-09-12 09:22 | NUR ---
WEANING KOFI OFF. DECREASED TO 18 ML/HR. BP 122/56.
--- NOTE | 2016-09-12 09:33 | NUR ---
AT BEDSIDE. PT. TAKING ICE CHIPS AND SIPS H20 WITHOUT DIFFICULTY. ENCOURAGED COUGH AND DEEP BREATHING.
--- NOTE | 2016-09-12 09:47 | NUR ---
IVF DECREASED TO 30 CC PER HOUR
--- NOTE | 2016-09-12 09:56 | NUR ---
DUAL ATRIUM CT CANISTER CHNAGED OUT USING STERILE TECHNIQUE. HOOKED BACK TO 20 CM SUCTION. NO AIR LEAK.
--- NOTE | 2016-09-12 10:04 | NUR ---
SHIFTS SELF IN BED. DOING INDEPENDENT ROM TO UPPER EXT.
--- NOTE | 2016-09-12 10:06 | NUR ---
RESTING WITH EYES CLOSED. VSS. CONTINUES ON 4L 02 VIA NC. SATTING 96%. RR 16 EVEN AND UNLABORED. NO DISTRESS. ENCOURAGED COUGH AND DEEP BREATH. GOOD STRONG PRODUCTIVE CLEAR SPUTUM COUGH. CONTINUEING TO WEAN KOFI. VSS. BP WITHIN ESTABLISHED PARAMETERS. RIGHT IJSG AND RIGHT SCDL DRSG X2 CD&I. NO S/S OF INFECTION. RIGHT RADIAL VAL WITH GOOD WAVE FORM. TEMP PACER CONTINUES TO SENSE ONLY. CM=NS RATE OF 83. TP VVI 50. VMA 10. SENSITIVITY 2.0. ROBERT BULBS ARE COMPRESSED X2 AT RIGHT LEG HARVEST SITES. COBAN CONTINUES TO BE WRAPPED AROUNG RIGHT LEG . PPP. MCCOY, FOLLOWS COMMANDS. 1:1 NURSING CARE IN PROGRESS. CPOC.
--- NOTE | 2016-09-12 10:40 | NUR ---
ROBERTO LANZA RT ADMN BREATHING TREATMENT.
--- NOTE | 2016-09-12 12:00 | NUR ---
FAMILY AT BEDSIDE. UPDATED.
--- NOTE | 2016-09-12 12:42 | NUR ---
CONTINUEING TO WEAN DOWN KOFI. INFUSING AT 16 CC PER HOUR.
--- NOTE | 2016-09-12 14:30 | NUR ---
CONTINUE TO WEAN KOFI OFF. INFUSING NOW AT 13 CC PER HOUR. BP 123/56
--- NOTE | 2016-09-12 15:00 | NUR ---
FAMILY AT BEDSIDE. UPDATED.
--- NOTE | 2016-09-12 17:25 | NUR ---
PULLS 1600 ON IS X1 AND 1500 ON IS X4. ENCOURAGED COUGH AND DEEP BREATHING. HAS GOOD STRONG PRODUCTIVE COUGH. CLEAR SPUTUM.
--- NOTE | 2016-09-12 17:45 | NUR ---
COBAN DRSG REMOVED FROM RIGHT LEG AND REDRESSWD PER ORDERS.NO S/S OF INFECTION. NO DRAINAGE.
--- NOTE | 2016-09-12 18:00 | NUR ---
FAMILY AT BEDSIDE. UPDATED.
--- NOTE | 2016-09-12 18:15 | NUR ---
DR. SARABAI IN ICU. UPDATED ABOUT SBP IN '. HE WILL LOOK AT PT. BEFORE HE LEAVES.
--- NOTE | 2016-09-12 18:15 | NUR ---
ABG DRAWN BY CHRIS AKHTAR RN FROM RIGHT RADIAL VAL FOR SBP 95-105.
--- NOTE | 2016-09-12 18:26 | NUR ---
GIVING 5 MEQ KCL FOR A 3.6 K LEVEL VIA ABG.
--- NOTE | 2016-09-12 18:28 | NUR ---
GIVING ONR GRAM CALCIUM OVER ONE HOUR VIA BURETROL FOR CALCIUM LEVEL OF 0.96 VIA ABG.
--- NOTE | 2016-09-12 18:31 | NUR ---
CALCIUM 1 GRAM AND KCL 5 MEQ INFUSING VIA BURETROL OVER ONE HOUR PER ORDERS. DILUTED WITH PLASMALYTE.
--- NOTE | 2016-09-12 18:31 | OP ---
PATIENT NAME: EILEEN SCHULER MEDICAL RECORD: [id number] :50 LOCATION:[id number] ADMISSION DATE:09/11/16 SURGEON: DAE SARABIA MD DATE OF OPERATION: 09/11/2016 SURGEON: Dae Sarabia MD. ANESTHESIA: General endotracheal, Dr. Fletcher and Dr. Gutierrez. OPERATIONS PERFORMED: 1. Aortic valve replacement utilizing a 23-mm Trifecta [employer] aortic valvular prosthesis. 2. Aortocoronary artery bypass utilizing left internal thoracic to left anterior descending, reverse saphenous vein graft to the distal right coronary artery and reverse saphenous vein graft, sequential first obtuse marginal, sequential second obtuse marginal. PREOPERATIVE DIAGNOSES: Severe aortic stenosis, severe occlusive coronary artery disease. POSTOPERATIVE DIAGNOSES: Severe aortic stenosis, severe occlusive coronary artery disease. INDICATION FOR OPERATION: Critical aortic stenosis, severe occlusive coronary artery disease. FINDINGS AT OPERATION: The aortic valve was severely and heavily calcified. It was a trileaflet valve with senile calcification. The saphenous vein from the right leg was satisfactory for grafting. The left internal thoracic was an excellent conduit. The target vessels were of good quality, the distal right, obtuse marginal 2, obtuse marginal 1 and left anterior descending coronary arteries. ESTIMATED BLOOD LOSS: Cell Saver was used. The aortic valvular prosthesis is [employer] Trifecta tissue valve, 23 mm in diameter, serial #[id number]. DESCRIPTION OF PROCEDURE: After informed consent, adequate preoperative medication and evaluation, the patient was brought to the operating room, placed on the table in the supine position. After induction of general endotracheal anesthesia and application of appropriate monitoring devices, the chest, neck, abdomen, and both legs were prepped and draped in a sterile field, utilizing Betadine scrub, alcohol, and Betadine solution. A Betadine-impregnated drape was also used. Saphenous vein was harvested from the right leg and prepared for reverse saphenous vein grafting. The leg was closed over drains utilizing 3-0 Vicryl and skin lokesh. A median sternotomy incision was used and dissection carried down the fascia. Hemostasis was maintained with electrocautery. Sternum was divided. Innominate vein was identified and protected. The left internal thoracic was taken down and prepared for grafting. The patient was given a calculated dose of heparin, cannulated in a standard fashion utilizing 1 aortic, 1 two-stage cannula in the atrium and inferior vena cava. The patient was placed on cardiopulmonary bypass, cooled to 32 degrees centigrade. A cross-clamp was placed just proximal to the aortic cannula and the patient was given cardioplegic solution through the aortic root. The patient was given a OPERATIVE REPORT [id number] EILEEN SCHULER cold induction and cold maintenance. The patient was given cold intermittent cardioplegic solution throughout the procedure, either through the root, the grafts, directly through the coronary ostia or a combination of all 3. The first vessel to be grafted was the second obtuse marginal. It was grafted end-to-side utilizing a running 7-0 Prolene suture. Graft was measured back to the first obtuse marginal and a uhip-pu-ypih anastomosis fashioned utilizing a running 7-0 Prolene suture. Grafts were measured back to the aorta and connected to the cardioplegia line. The distal right was then grafted end-to-side utilizing a running 7-0 Prolene suture. Graft was measured back to the aorta and the proximal end of the graft was attached to the cardioplegia line. Next, the left anterior descending was exposed and the left internal thoracic was brought through the hole in pericardium, sutured left anterior descending end-to-side utilizing a running 8-0 Prolene suture. Pedicle was attached to epicardium with a 6-0 Prolene suture. Next, the aorta was opened transversely and the valve examined. 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 The valve was then excised and the annulus underwent extensive debridement utilizing rongeurs, being careful not to lose any calcium. The annulus was cleansed and irrigated. Circumferential valve sutures were placed. The annulus sized to a 23 [employer] Trifecta. The sutures were then placed through the sewing ring of the valve. The valve lowered into position and secured. Valve was tested and was competent. The aorta was then closed in 2 layers utilizing running 4-0 Prolene sutures. The 2 proximal anastomoses were then fashioned to the aorta in end-to-side utilizing running 6-0 Prolene suture. All maneuvers to remove trapped air were performed. The patient was given warm cardioplegic reperfusion and controlled reperfusion. The patient rewarmed to 37 degrees centigrade. Two atrial and 2 ventricular placing wires were placed in the heart, brought out through the epigastric area. The patient was weaned cardiopulmonary bypass. After being stable off bypass, he was given calculated dose of protamine to reverse the heparin. Hemostasis was achieved. A #40 right angle and #36 chest tubes were brought in through the epigastric area and placed in the mediastinum. The chest was again irrigated. Instrument count and sponge count were correct times 2. A separate left pleural tube was connected to underwater seal and suction. Chest was closed in layers utilizing #7 wire on the sternum, #2 Vicryl on the linea alba and pectoralis fascia. Subcutaneous tissue was approximated with 3-0 Vicryl and skin approximated with 3-0 subcuticular Vicryl. Sterile dressings were applied. The patient tolerated the procedure well and transferred to cardiovascular intensive care in satisfactory condition. TRANSINT:[id number] Voice Confirmation ID: [id number] DOCUMENT ID: [id number] DAE SARABIA MD at 1831 CC: [id number] DICTATION DATE: 09/11/161740 ROCK MASON APPRENTICE: 09/11/16 213 ADM IN [place] [id number] [place] [id number]
--- NOTE | 2016-09-12 19:23 | NUR ---
REPORT RECIEVED. ASSESSMENT COMPLETE PER FLOW SHEET. RESP AT BEDSIDE. IS ENCOURAGED GOAL 1500 MET. STRONG PRODUCTIVE COUGH PRESENT. PT AWAKE ALERT ORIENTED X3. EYES 3MM PERRLA BRISK. O2 VIA NC 4L O2 SAT 98% RR 14 NON LABORED RUL RML DIONICIO CLEAR BILAT LOWER LOBES DEMINISHED. HEART S1S2 HR 82 NSR TPM PATENT DRSG CDI VVI 50 VMA [address] X3 PATENT SEROSANG DRAINAGE NOTED. NO AIR LEAK NOTED. BS ACTIVE X4 ABD DISTENDED DENIES N/V STATES PASSING GAS. R RADIAL A LINE PATENT ZEROED WITH GOOD WAVEFORM BP 124/52 EXTREMETY PINK WITH GOOD SENSATION WRIST PROTECTOR ON. ROSAS PATENT ALEXIA URINE NOTED. TEMP 37.8 CELCIUS VIA ROSAS. R LEG DRSG CDI ROBERT X2 NOTED MINIMAL SEROSANG DRAINGE NOTED COMPRESSED. BILAT TEDS SCD'S ON PEDAL PULSES PALP +2. R [place] PATENT WITH GOOD WAVE FORM AT 50CM LOCKED AND SECURED. R SUBCLAV CVL PATENT DRSG CDI. REFER TO FLOW SHEET FOR INFUSIONS. VSS. PT DENIES PAIN OR NEEDS AT THIS TIME. WILL CONTINUE TO MONITOR.
--- NOTE | 2016-09-12 21:16 | NUR ---
FAMILY AT BEDSIDE. GIVEN UDPATE. DENIES NEEDS.
--- NOTE | 2016-09-12 22:00 | NUR ---
CT/TPM WIRE SITE DRSG CHANGE COMPLETE. NO NEW FINDINGS. VSS WILL CONTINUE TO MONITOR.
--- NOTE | 2016-09-12 23:12 | NUR ---
REASSESSMENT COMPLETE PER FLOW SHEET. VSS. NO NEW CHANGES. RESP AT BEDSIDE. DENIES NEEDS.
[2016-09-13] VITALS (38 sets, daily range): BP systolic 111–148; BP diastolic 50–73
--- NOTE | 2016-09-13 00:15 | NUR ---
POTASSIUM REVIEWED 3.6. WILL TREAT PER STANDING ORDER.
--- NOTE | 2016-09-13 01:20 | NUR ---
GIVEN POOPCICLE PER RQUEST. ATE 100% DENIES FURTHER NEEDS OR PAIN. REPOSITIONED ON R SIDE FOR COMFROT. WILL CONTINUE TO MONITOR.
--- NOTE | 2016-09-13 01:20 | NUR ---
GIVEN POPCICLE PER REQUEST. ATE 100%. DENIES PAIN OR FURTHER NEEDS. REPOSITIONED ON R SIDE FOR COMFORT. VSS. WILL CONTINUE TO MONITOR
--- NOTE | 2016-09-13 03:24 | NUR ---
REASSESSMENT COMPLETE PER FLOW SHEET. VSS. NO NEW CHANGES. WILL CONTINUE TO MONITOR.
[2016-09-13 06:34] LABS: HEMATOCRIT 24.5 % (42.0-54.0); HEMOGLOBIN 8.4 g/dL (13.5-17.5); MCH 30.5 pg (26.0-34.0); MCHC 34.3 g/dL (31.0-37.0); MCV 89.1 fL (80.0-100.0); RBC 2.75 10x6/uL (4.20-6.10); RDW 15.8 % (11.5-14.5)
[2016-09-13 06:58] LABS: ALBUMIN 2.7 g/dL (3.4-5.0); ALKALINE PHOSPHATASE 41 U/L (46-116); CALCIUM 8.4 mg/dL (8.5-10.1); CARBON DIOXIDE 25.9 mmol/L (21.0-32.0); CHLORIDE - SERUM 109 mmol/L (98-107); GLUCOSE 147 mg/dL (74-106); POTASSIUM - SERUM 3.6 mmol/L (3.5-5.1); PROTEIN - SERUM 5.4 g/dL (6.4-8.2); SODIUM 143 mmol/L (136-145); eGFR NON AFRICAN AMERICAN 79 mL/min (90-120)
[2016-09-13 06:59] LABS: ALT (SGPT) 158 U/L (10-68); CALC OSMOLALITY 288 mosm/kg (275-300); UREA NITROGEN 16 mg/dL (7-18)
--- NOTE | 2016-09-13 07:00 | NUR ---
K+ REPLACED PER YING HULL.
--- NOTE | 2016-09-13 07:20 | NUR ---
REPORT RECIEVED FROM VINE PRUNER NURSE. PT RESTING IN BED QUIETLY. ASSESSMENT COMPLETE PER FLOWSHEET. CALL LIGHT IN REACH. PLAN OF CARE CONT. WILL CONT 1:1 CARE.
--- NOTE | 2016-09-13 07:45 | NUR ---
BP TRENDING IN AND OUT OF BLOOD PRESSURE PARAMETERS. NITRO GTT STARTED. WILL TITRATE ACCORDINGLY.
--- NOTE | 2016-09-13 08:00 | NUR ---
COUGHING AND DEEP BREATHING COMPLETED WITH PT. INSRUCTED TO HOLD PILLOW UP AGAINST CHEST TO SPLINT INCISION SITE. REPORTED MINIMAL PAIN. PRODUCTIVE COUGHT NOTED. CLEAR SPUTUM PRESENT. WILL CONT TO ENCOURAGE TO COUGH AND DEEP BREATHE.
--- NOTE | 2016-09-13 08:58 | TEE ---
PATIENT:EILEEN SCHULER MEDICAL RECORD: [id number] LOCATION:[place] [address] AGE OF PATIENT: 66 ADMISSION DATE: 09/11/16 SEX: M REFERRING PHYSICIAN: INTERPRETING PHYSICIAN: JAMES VEE MD TRANSESOPHAGEAL ECHOCARDIOGRAM RANJITH CHARGE Y INDICATIONS: CABG/AVR PREMEDICATIONS: PATIENT'S RESPONSE PROCEDURE DOPPLER MEASUREMENTS: LVIT LA PA RA LVOT RVOT Asc. Ao AV Gradient Peak AV Mean AV Area MV Gradient Peak MV Mean MV Area INTERPRETATION: LVd: 5.3 cm LVs: 3.7 cm Doppler: 2-D: COLOR FLOW DOPPLER NORMAL SALINE STUDY: MISCELLANOUS: DIAGNOSIS: PLAN: Ruby On Rails Engineer:2 Dr. Quiros Employee Benefits Insurance Agent: 1 NADIA SCHWARTZ COMMENTS: DATE OF SERVICE: 09/11/2016 Transesophageal echo evaluation of valvular structures during bypass surgery and aortic valve replacement. FINDINGS: 1. Left ventricular chamber size is within normal limits. Left ventricular systolic function is normal. Overall ejection fraction estimated at 50%. 2. Left atrium, right atrium, and right ventricular chamber sizes are within TRANSESOPHAGEAL ECHOCARDIOGRAM REPORT [id number] EILEEN SCHULER normal limits. 3. Valvular structures: Aortic valve demonstrates severe calcific aortic stenosis, but this is not a new finding. The patient is set for aortic valve replacement. The remaining valvular structures have normal structure and motion. 4. Doppler interrogation elsewise reveals [id number]-sm-[id number] mitral regurgitation, mild aortic insufficiency. No other valvular insufficiency or stenosis. 5. No evidence of pericardial effusion or left ventricular thrombus. TRANSINT:[id number] Voice Confirmation ID: [id number] DOCUMENT ID: [id number] at 0858 CC: [id number] DICTATION DATE: 09/11/16 1608 SCHOOL BUSINESS MANAGER: 09/12/16 1657 ADM IN [place] [id number] [place] [address]
--- NOTE | 2016-09-13 09:00 | NUR ---
FAMILY AT BEDSIDE. UPDATE PROVIDED.
--- NOTE | 2016-09-13 09:30 | NUR ---
DR. CORNELL TILLEY'S NURSE AT BEDSIDE. REPORTED HCT VALUE FOR THIS MORNING. DR. SARABIA AWARE OF CURRENT LAB RESULTS. WILL CONT TO MONITOR BLOOD COUNT.
--- NOTE | 2016-09-13 10:00 | NUR ---
INSTRUCTED PT TO USE IS. PULLED [phone] X10 WITH PRODUCTIVE COUGH IN BETWEEN BREATHS.
--- NOTE | 2016-09-13 10:45 | NUR ---
DR. SARABIA AT BEDSIDE TO REMOVE LINES.
--- NOTE | 2016-09-13 12:30 | NUR ---
ALL LINES PULLED PER ORDERS. NO ISSUES NOTED UPON REMOVAL. BED BATH AND LINEN CHANGE PROVIDED.
--- NOTE | 2016-09-13 14:00 | NUR ---
MIN ASSIST TO CHAIR WITH PT. TOLERATED WELL WITH SOME SOB. O2 SATURATIONS REMIANED STABLE. VSS.
--- NOTE | 2016-09-13 15:00 | NUR ---
AT BEDSIDE. UPDATE PROVIDED.
--- NOTE | 2016-09-13 18:00 | NUR ---
ASSISTED BACK TO BED. TOLERATED WELL.
--- NOTE | 2016-09-13 19:15 | NUR ---
REPORT RECVD. CARE ASSUMED. INITIAL ASSMNT COMPLETED. SEE FLOWSHEET FOR ALL FINDINGS. AWAKE AND AOX4. PERRLA. MAEW. RESP EVEN AND UNLABORED. LUNGS CTA, DIM IN BASES. OCC PROD COUGH, SPO2 94% ON O2 AT 2LPM NC. SR ON THE MONITOR. TEMP PM VVI 50, SENSING ONLY. PULSES PALP. GENERALIZED EDEMA PRESENT. TEDS/SCDS IN USE. AFEBRILE. ABD SOFT, BSA X4. VOIDING NO DIFF TO URINAL. REPOSITIONS SELF FOR COMFORT WITH INSTRUCTION. DENIES UNCONTROLLED PAIN. HOB UP. C/L AND PO FLUIDS IN REACH. CONT CURRENT POC.
--- NOTE | 2016-09-13 21:00 | NUR ---
HS MEDS GIVEN. PRN NORCO PROVIDED TO PROMOTE COMFORT AND REST. FAMILY AT BEDSIDE FOR VISITATION. UPDATE GIVEN. VSS. HOB UP. C/L IN REACH. CONT CURRENT POC.
--- NOTE | 2016-09-13 23:15 | NUR ---
REASSESSMENT COMPLETED. SEE FLOWSHEET FOR ALL FINDINGS. RESTING. AOX4. PERRLA. MAEW. RESP EVEN AND UNLABORED. LUNGS CTA, DIM IN BASES. OCC PROD COUGH, SPO2 94% ON O2 AT 2LPM NC. SR ON THE MONITOR. TEMP PM VVI 50, SENSING ONLY. PULSES PALP. GENERALIZED EDEMA PRESENT. TEDS/SCDS IN USE. AFEBRILE. ABD SOFT, BSA X4. VOIDING NO DIFF TO URINAL. REPOSITIONS SELF FOR COMFORT WITH INSTRUCTION. DENIES UNCONTROLLED PAIN. HOB UP. C/L AND PO FLUIDS IN REACH. CONT CURRENT POC.
[2016-09-14] VITALS (23 sets, daily range): BP systolic 115–150; BP diastolic 59–77
--- NOTE | 2016-09-14 01:20 | NUR ---
VOIDED TO URINAL NO DIFF. REPOSITIONED SELF FOR COMFORT. VSS. HOB UP. C/L IN REACH. DENIES NEEDS. CONT CURRENT POC.
--- NOTE | 2016-09-14 05:00 | NUR ---
UP TO W/C FOR XRAY. BATH GIVEN. LINENS CHANGED. BACK TO CHAIR AT BEDSIDE. VSS. SR ON THE MONITOR. SPO2 97% ON O2 AT 2 LPM NC. C/L IN REACH. CONT CURRENT POC.
[2016-09-14 06:14] LABS: HEMATOCRIT 24.1 % (42.0-54.0); HEMOGLOBIN 8.2 g/dL (13.5-17.5); MCH 30.9 pg (26.0-34.0); MCV 90.9 fL (80.0-100.0); MEAN PLATELET VOLUME 11.3 fL (7.4-10.4); RBC 2.65 10x6/uL (4.20-6.10); RDW 15.3 % (11.5-14.5); WBC 6.7 10x3/uL (4.8-10.8)
[2016-09-14 06:49] LABS: ALBUMIN 2.7 g/dL (3.4-5.0); ANION GAP 10.9 mmol/L (8-16); BILIRUBIN - TOTAL 0.81 mg/dL (0.2-1.3); CALCIUM 8.6 mg/dL (8.5-10.1); CARBON DIOXIDE 26.2 mmol/L (21.0-32.0); CREATININE - SERUM 1.2 mg/dL (0.6-1.3); POTASSIUM - SERUM 4.1 mmol/L (3.5-5.1); PROTEIN - SERUM 5.8 g/dL (6.4-8.2)
--- NOTE | 2016-09-14 09:09 | NUR ---
AMBULATING WITH P.T. ON TELEMETRY AND O2.
--- NOTE | 2016-09-14 18:40 | NUR ---
ORAL CARE WITH PERIDEX PER ORDER
--- NOTE | 2016-09-14 19:30 | NUR ---
REPORT RECVD. CARE ASSUMED. INITIAL ASSMNT COMPLETED. SEE FLOWSHEET FOR ALL FINDINGS. AWAKE AND AOX4. PERRLA. MAEW. RESP EVEN AND UNLABORED. LUNGS CTA, DIM IN BASES. OCC PROD COUGH, SPO2 98% ON O2 AT 2LPM NC. SR ON THE MONITOR. TEMP PM VVI 50, SENSING ONLY. PULSES PALP. GENERALIZED EDEMA PRESENT. TEDS/SCDS IN USE. AFEBRILE. ABD SOFT, BSA X4. VOIDING NO DIFF TO URINAL. REPOSITIONS SELF FOR COMFORT. DENIES DISCOMFORT. [id number]. HOB UP. C/L AND PO FLUIDS IN REACH. BED ALARM ON. CONT CURRENT POC.
--- NOTE | 2016-09-14 21:26 | NUR ---
HS MEDS GIVEN. PRN NORCO PROVIDED FOR PAIN CONTROL AND TO PROMOTE REST. VSS. SPO2 98% ON O2 AT 2 LPM NC. REPOSITIONS SELF IN BED FOR COMFORT. PO FLUIDS AND HS SNACK PROVIDED. HOB UP. C/L AND URINAL IN REACH. BED ALARM ON. CONT CURRENT POC.
--- NOTE | 2016-09-14 23:30 | NUR ---
REASSESSMENT COMPLETED. SEE FLOWSHEET FOR ALL FINDINGS. RESTING. AOX4. PERRLA. MAEW. RESP EVEN AND UNLABORED. LUNGS CTA, DIM IN BASES. OCC PROD COUGH, SPO2 97% ON O2 AT 2LPM NC. SR ON THE MONITOR. TEMP PM VVI 50, SENSING ONLY. PULSES PALP. GENERALIZED EDEMA PRESENT. TEDS/SCDS IN USE. AFEBRILE. ABD SOFT, BSA X4. VOIDING NO DIFF TO URINAL. REPOSITIONS SELF FOR COMFORT. DENIES PAIN/NEEDS. HOB UP. C/L AND PO FLUIDS IN REACH. CONT CURRENT POC.
[2016-09-15] VITALS (24 sets, daily range): BP systolic 103–147; BP diastolic 56–76
--- NOTE | 2016-09-15 01:15 | NUR ---
RESTING SOUNDLY WITH NO DISTRESS. VSS. SR ON THE MONITOR. SPO2 97% ON O2 AT 2 LPM NC. DENIES NEEDS. HOB UP. C/L AND PO FLUIDS WITHIN REACH. CONT CURRENT POC.
--- NOTE | 2016-09-15 05:00 | NUR ---
UP TO W/C FOR XRAY. PRN NORCO GIVEN FOR PAIN CONTROL. BACK TO CHAIR AT BEDSIDE. VSS. SR ON THE MONITOR. TEMP PM INTACT, VVI 59, SENSING. C/L AND PO FLUIDS IN REACH. CONT CURRENT POC.
[2016-09-15 06:07] LABS: HEMATOCRIT 24.4 % (42.0-54.0); HEMOGLOBIN 8.2 g/dL (13.5-17.5); MCH 30.7 pg (26.0-34.0); MCHC 33.6 g/dL (31.0-37.0); MCV 91.4 fL (80.0-100.0); MEAN PLATELET VOLUME 11.5 fL (7.4-10.4); RBC 2.67 10x6/uL (4.20-6.10); RDW 14.8 % (11.5-14.5); WBC 7.2 10x3/uL (4.8-10.8)
[2016-09-15 06:36] LABS: ALBUMIN 2.6 g/dL (3.4-5.0); ANION GAP 12.8 mmol/L (8-16); BILIRUBIN - TOTAL 0.88 mg/dL (0.2-1.3); CALCIUM 8.1 mg/dL (8.5-10.1); CARBON DIOXIDE 26.1 mmol/L (21.0-32.0); CREATININE - SERUM 1.1 mg/dL (0.6-1.3); POTASSIUM - SERUM 3.9 mmol/L (3.5-5.1); PROTEIN - SERUM 5.9 g/dL (6.4-8.2)
--- NOTE | 2016-09-15 06:47 | NUR ---
K+ LEVEL TREATED PER SLIDING SCALE
--- NOTE | 2016-09-15 09:13 | NUR ---
ORAL CARE DONE WITH PERIDEX
--- NOTE | 2016-09-15 13:51 | NUR ---
TPM CHANGES MADE PER DR. SARABIA.
--- NOTE | 2016-09-15 19:00 | NUR ---
REPORT REVEIVED AND ASSESSMENT COMPLETED. SEE FLOWSHEET FOR FULL DETAILS. PT UP IN CHAIR AT THIS TIME. VSS. WILL CONTINUE TO MONITOR.
--- NOTE | 2016-09-15 19:05 | NUR ---
ORAL CARE PERFORMED WITH PERIDEX ORDERED
--- NOTE | 2016-09-15 21:00 | NUR ---
2100 MEDS GIVEN. FAMILY AT BEDSIDE DRESSINGS CHANGED. VSS. WILL MONITOR.
--- NOTE | 2016-09-15 23:00 | NUR ---
REASSESSMENT COMPLETED. SEE FLOWSHEET FOR FULL DETAILS. VSS. WILL MONITOR FOR CHANGES
[2016-09-16] VITALS (24 sets, daily range): BP systolic 102–150; BP diastolic 57–92
--- NOTE | 2016-09-16 01:00 | NUR ---
REPOSITIONED PT IN BED. NO OTHER CHANGES AT THIS TIME. VSS. WILL MONITOR FOR CHANGES.
--- NOTE | 2016-09-16 03:28 | NUR ---
REASSESSMENT COMPLETED. SEE FLOWSHEET. NO OTHER CHANGES AT THIS TIME. VSS. WILL CONTINUE TO MONITOR.
--- NOTE | 2016-09-16 05:00 | NUR ---
NO CHANGES IN STATUS AT THIS TIME.VSS. WILL ESCORT WITH RADIOLOGY SHORTLY. VSS. WILL MONITOR
[2016-09-16 06:31] LABS: HEMOGLOBIN 8.8 g/dL (13.5-17.5); MCHC 32.6 g/dL (31.0-37.0); MCV 92.2 fL (80.0-100.0); MEAN PLATELET VOLUME 11.8 fL (7.4-10.4); RBC 2.93 10x6/uL (4.20-6.10); RDW 14.4 % (11.5-14.5); WBC 7.6 10x3/uL (4.8-10.8)
--- NOTE | 2016-09-16 07:00 | NUR ---
PT REPORT REC'D, PT CARE ASSUMED. PT [id number] SITTING UP IN CHAIR. NO C/O PAIN, VSS. PT AT THE BEDSIDE. MIDSTERNAL INCISION, DRESSING CDI, SUBSTERNAL DRESSING CDI, TPM WIRES SECURED TO CHEST. RIGHT LEG HARVES SITES, DRESSINGS CDI. RIGHT SUBCLAVIAN CVL, DRESSING CDI. BEDSIDE URINAL NEEDED. SHIFT ASSESSMENT COMPLETED, SEE FLOW SHEET. ROOM FREE OF CLUTTER, CALL LIGHT IN REACH, WILL CONTINUE TO MONITOR PT.
[2016-09-16 07:17] LABS: ALBUMIN 2.6 g/dL (3.4-5.0); ALKALINE PHOSPHATASE 162 U/L (46-116); ALT (SGPT) 118 U/L (10-68); BILIRUBIN - TOTAL 0.79 mg/dL (0.2-1.3); CALC OSMOLALITY 284 mosm/kg (275-300); CALCIUM 8.2 mg/dL (8.5-10.1); CHLORIDE - SERUM 103 mmol/L (98-107); GLUCOSE 161 mg/dL (74-106); POTASSIUM - SERUM 3.5 mmol/L (3.5-5.1); PROTEIN - SERUM 6.2 g/dL (6.4-8.2); SODIUM 139 mmol/L (136-145); UREA NITROGEN 24 mg/dL (7-18); eGFR NON AFRICAN AMERICAN 79 mL/min (90-120)
--- NOTE | 2016-09-16 09:15 | NUR ---
PT AMBULATED WITH PHYSICAL THERAPY, PT AMBULATED APPROX 500 FT, PT TOLERATED WELL, WILL CONTINUE TO MONITOR PT.
--- NOTE | 2016-09-16 09:20 | NUR ---
DR. HANKS AT THE BEDSIDE, ALL QUESTIONS ANSWERED, WILL CONINTUE TO MONITOR PT.
--- NOTE | 2016-09-16 09:35 | NUR ---
NUTRITION MONITORING & EVAL CHART REVIEWED, PT VISIT. PT REPORTS 75% INTAKE ADA BREAKFAST. NO COMPLAINTS. RD FOLLOWING
--- NOTE | 2016-09-16 11:00 | NUR ---
PT FAMILY AT THE BEDSIDE, ALL QUESTIONS ANSWERED, VSS. REASSESSMENT COMPLETED, SEE FLOW SHEET. ROOM FREE OF CLUTTER, CALL LIGHT IN REACH, WILL CONTINUE TO MONITOR PT.
--- NOTE | 2016-09-16 15:00 | NUR ---
PT SITTING UP IN CHAIR, NO C/O PAIN, VSS, TPM PACING, REASSESSMENT COMPLETED, SEE FLOW SHEET. ROOM FREE OF CLUTTER, CALL LIGHT IN REACH, WILL CONTINUE TO MONITOR PT.
--- NOTE | 2016-09-16 17:25 | NUR ---
DR. SARABIA AT THE BEDSIDE, CHANGED TPM RATE FROM 70 TO 60, VSS. WILL CONTINUE TO MONITOR PT.
--- NOTE | 2016-09-16 18:00 | NUR ---
PT FAMILY AT THE BEDSIDE, ALL QUESTIONS ANSWERED, VSS, WILL CONTINUE TO MONITOR PT.
--- NOTE | 2016-09-16 18:55 | NUR ---
ORAL CARE PERFORMED WITH PERIDEX ORDERED
--- NOTE | 2016-09-16 19:34 | NUR ---
REPORT RECEIVED AND ASSESSMENT COMPLETED. SEE FLOWSHEET FOR FULL DETAILS. WILL MONITOR THROUGHOUT SHIFT FOR CHANGES.
--- NOTE | 2016-09-16 21:00 | NUR ---
2100 MEDS GIVEN. FAMILY AT BEDSIDE. RIGHT LEG DRESSINGS CHANGED. VSS. WILL MONITOR.
--- NOTE | 2016-09-16 23:00 | NUR ---
REASSESSMENT COMPLETED. SEE FLOWSHEET FOR FULL DETAILS. VSS. WILL CONTINUE TO MONITOR FOR CHANGES
[2016-09-17] VITALS (24 sets, daily range): BP systolic 105–137; BP diastolic 54–73
--- NOTE | 2016-09-17 01:00 | NUR ---
PT RESTING IN ROOM. VSS. NO CHANGES IN STATUS AT THIS TIME. BEDSIDE RAILS UP X 2. IN LOW POSITION. CALL LIGHT IN REACH
--- NOTE | 2016-09-17 03:33 | NUR ---
REASSESSMENT COMPLETED. SEE FLOWSHEET FOR FULL DETAILS. VSS. WILL CONTINUE TO MONITOR FOR CHANGES
--- NOTE | 2016-09-17 05:00 | NUR ---
NO CHANGES IN STATUS AT THIS TIME. VSS. WILL MONITOR
[2016-09-17 06:29] LABS: HEMATOCRIT 27.9 % (42.0-54.0); MCH 30.1 pg (26.0-34.0); MCHC 32.3 g/dL (31.0-37.0); MCV 93.3 fL (80.0-100.0); MEAN PLATELET VOLUME 11.5 fL (7.4-10.4); RBC 2.99 10x6/uL (4.20-6.10); RDW 14.6 % (11.5-14.5); WBC 8.1 10x3/uL (4.8-10.8)
[2016-09-17 06:38] LABS: ALBUMIN 2.5 g/dL (3.4-5.0); ALKALINE PHOSPHATASE 123 U/L (46-116); CALC OSMOLALITY 278 mosm/kg (275-300); CARBON DIOXIDE 27.6 mmol/L (21.0-32.0); CHLORIDE - SERUM 101 mmol/L (98-107); GLUCOSE 154 mg/dL (74-106); POTASSIUM - SERUM 3.2 mmol/L (3.5-5.1); PROTEIN - SERUM 5.9 g/dL (6.4-8.2); SODIUM 137 mmol/L (136-145); UREA NITROGEN 18 mg/dL (7-18); eGFR NON AFRICAN AMERICAN 79 mL/min (90-120)
[2016-09-17 06:41] LABS: ALT (SGPT) 83 U/L (10-68)
--- NOTE | 2016-09-17 07:00 | NUR ---
PT REPORT REC'D, PT CARE ASSUMED. PT SITTING UP IN CHAIR, NO C/O PAIN, VSS. PT AT THE BEDSIDE, ALL QUESTIONS ANSWERED. RIGHT SUBCLAVIAN CVL S/L'ED, DRESSING CDI. BATHROOM NEEDED. SHIFT ASSESSMENT COMPLETED, SEE FLOW SHEET. ROOM FREE OF CLUTTER, CALL LIGHT IN REACH, WILL CONTINUE TO MONITOR PT.
--- NOTE | 2016-09-17 08:45 | NUR ---
TREVA BRAND RN AT THE BEDSIDE, CHANGED TPM FROM DDD TO VVI 50, WILL CONTINUE TO MONITOR PT.
--- NOTE | 2016-09-17 09:24 | NUR ---
DR. HANKS AT THE BEDSIDE
--- NOTE | 2016-09-17 09:31 | NUR ---
PT FAMILY AT THE BEDSIDE, ALL QUESTIONS ANSWERED, VSS, WILL CONTINUE TO MONITOR PT.
--- NOTE | 2016-09-17 11:00 | NUR ---
PT SITTING UP IN CHAIR, NO C/O PAIN, VSS. REASSESSMENT COMPLETED, SEE FLOW SHEET. ROOM FREE OF CLUTTER, CALL LIGHT IN REACH. WILL CONTINUE TO MONITOR PT.
--- NOTE | 2016-09-17 11:02 | NUR ---
Is the patient Alert and Oriented? Yes 0 * How many steps to enter\exit or inside your home? 4 0 * PCP DR. AJ 0 * Pharmacy [facility] ON [facility] 0 * Preadmission Environment Home with Family 0 * ADLs Independent 0 * Equipment None 0 * List name and contact numbers for known caregivers / representatives who currently or will assist patient after discharge: SPOUSE: CR (C)[phone] (H) [phone] 0 * Community resources currently utilized None 0 * Additional services required to return to the preadmission environment? No 0 * Can the patient safely return to the preadmission environment? Yes 0 * Has this patient been hospitalized within the prior 30 days at any hospital? No SPOKE WITH PATIENT AND AT BEDSIDE. PATIENT STATES HE WAS INDEPENDENT IN ALL ADL'S PRIOR TO COMING TO THE HOSPITAL. PATIENT'S , CR, WILL DRIVE HIM HOME AT DISCHARGE. PATIENT STATES DR. AJ IS HIS PCP. HE GETS HIS MEDS FROM [facility]. PATIENT DENIED USE OF ANY EQUIPMENT. HE DENIES EVER HAVING HOME HEALTH CARE. PATIENT STATES THERE ARE 4 STEPS TO ENTER HIS HOME. THERE ARE 17 STEPS TO GET TO THE SECOND FLOOR OF HIS HOME BUT THEY HAVE MADE ARRANGMENTS TO UTILIZE A MASTER BR ON THE GROUND FLOOR UNTIL HE CAN CLIMB STAIRS. NO DISCHARGE NEEDS IDENTIFIED AT THIS TIME.
--- NOTE | 2016-09-17 12:00 | NUR ---
PT FAMILY AT THE BEDSIDE, ALL QUESTIONS ANSWERED, VSS. WILL CONTINUE TO MONITOR PT.
--- NOTE | 2016-09-17 15:00 | NUR ---
PT SITTING UP IN CHAIR, NO C/O PAIN, VSS. REASSESSMENT COMPLETED, SEE FLOW SHEET. WILL CONTINUE TO MONITOR PT.
--- NOTE | 2016-09-17 15:15 | NUR ---
AMBULATED PT, PER PT REQUEST, PT TOLERATED WELL. WILL CONTINUE TO MONITOR PT
--- NOTE | 2016-09-17 15:21 | NUR ---
PT FAMILY AT THE BEDSIDE, ALL QUESTIONS ANSWERED, VSS. WILL CONTINUE TO MONITOR PT.
--- NOTE | 2016-09-17 18:12 | NUR ---
PT FAMILY AT THE BEDSIDE, ALL QUESTIONS ANSWERED, VSS. WILL CONTINUE TO MONITOR PT.
--- NOTE | 2016-09-17 19:00 | NUR ---
REPORT RECEIVED AND ASSESSMENT COMPLETED. SEE FLOWSHEET FOR FULL DETAILS. VSS. WILL CONTINUE TO MONITOR
--- NOTE | 2016-09-17 21:00 | NUR ---
2100 MEDS GIVEN. FAMILY AT BEDSIDE. DISCUSSED PT CONDITION AND PACEMAKER SETTINGS AT THIS TIME. VSS. WILL MONITOR
--- NOTE | 2016-09-17 23:00 | NUR ---
REASSESSMENT COMPLETED. SEEFLOWSHEET FOR FULL DETAILS. VSS. WILL MONITOR.
[2016-09-18] VITALS (9 sets, daily range): BP systolic 116–140; BP diastolic 63–74
--- NOTE | 2016-09-18 01:00 | NUR ---
NO CHANGES IN STATUS AT THIS TIME. VSS. WILL MONITOR. ONE URINE OUTPUT 450 ML.
--- NOTE | 2016-09-18 03:00 | NUR ---
REASSESSMENT COMPLETE. SEE FLOWSHEET FOR FULL DETAILS. VSS. WILL MONITOR FOR CHANGES THROUGHOUT THE SHIFT
--- NOTE | 2016-09-18 05:00 | NUR ---
NO CHANGES IN STATUS AT THIS TIME. VSS. WILL MONITOR
--- NOTE | 2016-09-18 08:00 | NUR ---
SHIFT ASSESSMENT VIA FLOWSHEET, SEE FOR DETAILS.
[2016-09-18] MEDS ORDERED: HEMOCYTE PLUS C1 CAP PO (08:01)
[2016-09-18] MEDS ORDERED: LOPRESSOR25 MG PO (08:01)
[2016-09-18] MEDS ORDERED: LASIX20 MG PO (08:02)
[2016-09-18] MEDS ORDERED: K-DUR20 MEQ PO (08:02)
[2016-09-18] MEDS ORDERED: ULTRAM50 MG PO (08:04)
[2016-09-18] MEDS ORDERED: HYDROCODON-ACE1 EAC7 PO (08:04)
--- NOTE | 2016-09-18 08:30 | NUR ---
ASSISTED PT TO BATHROOM.
[2016-09-18 08:32] LABS: HEMATOCRIT 30.3 % (42.0-54.0); HEMOGLOBIN 9.6 g/dL (13.5-17.5); MCH 29.6 pg (26.0-34.0); MCHC 31.7 g/dL (31.0-37.0); MCV 93.5 fL (80.0-100.0); MEAN PLATELET VOLUME 10.9 fL (7.4-10.4); RBC 3.24 10x6/uL (4.20-6.10); RDW 14.5 % (11.5-14.5); WBC 8.7 10x3/uL (4.8-10.8)
[2016-09-18 08:54] LABS: CALC OSMOLALITY 278 mosm/kg (275-300); CALCIUM 8.6 mg/dL (8.5-10.1); CARBON DIOXIDE 26.2 mmol/L (21.0-32.0); CHLORIDE - SERUM 101 mmol/L (98-107); GLUCOSE 243 mg/dL (74-106); POTASSIUM - SERUM 4.3 mmol/L (3.5-5.1); SODIUM 135 mmol/L (136-145); UREA NITROGEN 14 mg/dL (7-18); eGFR NON AFRICAN AMERICAN 79 mL/min (90-120)
[2016-09-18] MEDS ORDERED: LANTUS INSULIN10 ML SC (09:49)
--- NOTE | 2016-09-18 10:00 | NUR ---
CVL AND TPM D/C'D BY TREVA BRAND RN.
--- NOTE | 2016-09-18 13:30 | NUR ---
LANTUS INSTRUCTIONS GIVEN TO PT. INSTRUCT PT HOW TO DIAL UP PEN TO 10 UNITS TONIGHT. IN AM HE WILL CHECK BS IF GREATER THAN 120 HE WILL ADD 1 UNIT THAT NIGHT. HE CONTINUE TO DO THIS EVERY AM CHECK BS IF GREATER THAN 120 HE WILL ADD 1 UNIT OF INSULIN UNTIL HE HAS A CONTROL BS OF 120 0R LESS. INSTRUCT MUST CHECK BS EVERY AM BEFORE MEALS AND KEEP LOG FOR DR AJ. IF ANY QUESTIONS CALL DR AJ OFFICE AND SPEAK TO A NURSE. PT DID PARAPHRASE TEACHING BACK TO ME AND DOES UNDERSTAND DIRECTIONS. AT THE BEDSIDE.
== END 2016-09-18 15:05 | disposition home or self-care (01) | DRG 220 ==
LOC: D.SDCHOLD 06:06 → D.CVICU 06:06 → D.SDCHOLD 07:30 → D.CVICU 13:36
PROVIDERS: ADMIT Internal Medicine Cardiovascular Disease
PROC: 021209W Bypass Coronary Artery, Three Arteries from Aorta with Autologous Venous Tissue, Open Approach (ICD-10-PCS; 2016-09-11)
PROC: 06BP0ZZ Excision of Right Saphenous Vein, Open Approach (ICD-10-PCS; 2016-09-11)
PROC: 5A1221Z Performance of Cardiac Output, Continuous (ICD-10-PCS; 2016-09-11)
PROC: 02100AC Bypass Coronary Artery, One Artery from Thoracic Artery with Autologous Arterial Tissue, Open Approach (ICD-10-PCS; principal; 2016-09-11 07:30)
PROC: 02RF08Z Replacement of Aortic Valve with Zooplastic Tissue, Open Approach (ICD-10-PCS; 2016-09-11 07:30)
DX: I25.10 Atherosclerotic heart disease of native coronary artery without angina pectoris (principal); D62 Acute posthemorrhagic anemia; I48.92 Unspecified atrial flutter; I35.0 Nonrheumatic aortic (valve) stenosis; E11.9 Type 2 diabetes mellitus without complications; I10 Essential (primary) hypertension; E78.5 Hyperlipidemia, unspecified; Z82.49 Family history of ischemic heart disease and other diseases of the circulatory system; Z87.891 Personal history of nicotine dependence

== ENCOUNTER → 2016-10-03 08:56 | Outpatient (CLI) | payer MEDICARE, BC ==
[2016-09-12 10:54] VITALS: BMI 33.4
[~2016-10-03 08:56] MED LIST changes: +HEMOCYTE PLUS C1 CAP PO; +HYDROCODON-ACE1 EAC7 PO; +K-DUR20 MEQ PO; +LANTUS INSULIN10 ML SC; +LASIX20 MG PO; +LOPRESSOR25 MG PO; +ULTRAM50 MG PO
[2016-10-03 09:48] LABS: HEMATOCRIT 38.2 % (42.0-54.0); HEMOGLOBIN 12.1 g/dL (13.5-17.5); MCH 28.7 pg (26.0-34.0); MCHC 31.7 g/dL (31.0-37.0); MCV 90.5 fL (80.0-100.0); MEAN PLATELET VOLUME 10.9 fL (7.4-10.4); RBC 4.22 10x6/uL (4.20-6.10); RDW 13.8 % (11.5-14.5); WBC 6.1 10x3/uL (4.8-10.8)
[2016-10-03 09:54] LABS: ANION GAP 14.3 mmol/L (8-16); CALCIUM 9.5 mg/dL (8.5-10.1); CARBON DIOXIDE 25.1 mmol/L (21.0-32.0); CREATININE - SERUM 1.2 mg/dL (0.6-1.3); POTASSIUM - SERUM 4.4 mmol/L (3.5-5.1)
== END | disposition home or self-care (01) ==
LOC: D.RAD 08:56
PROVIDERS: Internal Medicine Cardiovascular Disease
DX: D64.9 Anemia, unspecified (principal); J90 Pleural effusion, not elsewhere classified

== ENCOUNTER 2016-10-24 12:15 | Inpatient (IN) | payer MEDICARE, BC ==
[~2016-10-24] VITALS: Ht 177.8 cm; Wt 90.0 kg
--- NOTE | ~2016-10-24 | EC ---
PATIENT:EILEEN SCHULER DATE OF SERVICE: 10/24/16 SEX: M MEDICAL RECORD: [id number] DATE OF : 50 LOCATION:D.M2 D.211 AGE OF PATIENT: 66 ADMISSION DATE: 10/24/16 REFERRING PHYSICIAN: INTERPRETING PHYSICIAN: CAYLA QUIROS M.D. ECHOCARDIOGRAM REPORT ECHO CHARGES 4 ECHO COMPLETE CLINICAL DIAGNOSIS: TIA RECENT AVR/CABG ECHOCARDIOGRAPHIC MEASUREMENTS (adult normal given) AC root (d.<3.7cm) 3.5 LV Septum d (<1.2 cm> 1.6 Valve Excursion 1.9 LV Septum (systole) 1.7 Left Atria (s.<4.0cm> 4.4 LVPW d(<1.2cm) 1.5 RV (d.<2.3cm) 4.5 LVPW (sytole) 1.9 LV diastole(<5.6CM) 4.1 MV E-F(>70mm/sec) LV systole 2.4 LVOT Diameter 1.8 MV exc.(>10mm) 1.4 Est.ejection fraction (50-75%) Pericardial Effusion N DOPPLER: LVIT A 93.0 E 70.0 LA RVSP 25 LVOT 104 AOP1/2T Asc. Ao 183 RVOT 140 RA PA 167 AV Gradient Peak 13.36 AV Mean 6.81 AV Area 1.8 MV Gradient Peak 4.45 MV Mean 2.54 MV Area COMMENTS: Sash Maker: Clary ORTIZ [employer] Supervisor:2 Dr. Quiros TAPE# PACS DATE OF SERVICE: 10/24/2016 INDICATION: TIA. REFERRING PHYSICIAN: Alisha Tobin MD DESCRIPTION: Left ventricle demonstrates left ventricular hypertrophy. Systolic function is lower limits of normal around 50%. Mitral valve is structurally normal. There is no regurgitation or prolapse seen. Left atrium is mildly dilated. The aortic valve is a tissue valve. The gradient is within ECHOCARDIOGRAM REPORT [id number] EILEEN SCHULER normal limits. There is no insufficiency seen. Right ventricle is mildly dilated. Tricuspid valve is normal. There is mild regurgitation seen. Right atrium is mildly dilated. There is no pericardial effusion noted. IMPRESSION: 1. Left ventricular hypertrophy with preserved ejection fraction of 50%. 2. Normally functioning prosthetic aortic valve. 3. Mild tricuspid regurgitation. 4. No evidence of any mass or thrombus in the left ventricle apex. 5. No evidence of atrial septal defect, ventricular septal defect, or patent foramen ovale. TRANSINT:[id number] Voice Confirmation ID: [id number] DOCUMENT ID: [id number] CAYLA QUIROS M.D. CC: [id number] DICTATION DATE: 10/25/16 0757 ENVELOPE FOLDING MACHINE OPERATOR: 10/25/16 1521 ADM IN [facility] [address] [id number]
[2016-10-24 12:35] LABS: BASOPHILS 0.2 % (0-2); EOSINOPHILS 0.8 % (0-7); HEMATOCRIT 43.2 % (42.0-54.0); HEMOGLOBIN 13.8 g/dL (13.5-17.5); IMMATURE GRANULOCYTES 0.3 % (0-5); LYMPHOCYTES 18.8 % (15-50); MCH 28.5 pg (26.0-34.0); MCHC 31.9 g/dL (31.0-37.0); MCV 89.3 fL (80.0-100.0); MEAN PLATELET VOLUME 11.9 fL (7.4-10.4); MONOCYTES 13.2 % (2-11); NEUTROPHILS 66.7 % (40-80); RBC 4.84 10x6/uL (4.20-6.10); RDW 14.1 % (11.5-14.5); WBC 10.3 10x3/uL (4.8-10.8)
[2016-10-24 12:37] LABS: PLATELET COUNT 210 10x3/uL (130-400)
[2016-10-24 12:43] LABS: APTT 26.1 SECONDS (22.8-39.4); INR 1.07 (0.85-1.17); PROTIME 13.8 SECONDS (11.6-15.0)
[2016-10-24 12:48] LABS: ALBUMIN 3.3 g/dL (3.4-5.0); ALKALINE PHOSPHATASE 72 U/L (46-116); ALT (SGPT) 16 U/L (10-68); BILIRUBIN - TOTAL 0.43 mg/dL (0.2-1.3); CALC OSMOLALITY 279 mosm/kg (275-300); CALCIUM 9.5 mg/dL (8.5-10.1); CARBON DIOXIDE 23.1 mmol/L (21.0-32.0); CHLORIDE - SERUM 99 mmol/L (98-107); GLUCOSE 220 mg/dL (74-106); POTASSIUM - SERUM 4.1 mmol/L (3.5-5.1); SODIUM 135 mmol/L (136-145); UREA NITROGEN 20 mg/dL (7-18); eGFR NON AFRICAN AMERICAN 79 mL/min (90-120)
--- NOTE | 2016-10-24 15:07 | NUR ---
RECEIVED VIA WHEELCHAIR TO ROOM, FAMILY PRESENT. SLIGHT COMPLAINT OF RIGHT HAND BEING NUMB BUT BILATERAL HAND SHIPPING/RECEIVING CLERK ARE STRONG AND EQUAL. RIGHT FOOT PUSHING IS SLIGHTLY WEAKER. SMILE IS SYMECTRICAL. SALINE LOCK SEEN TO LEFT WRIST.
[2016-10-24] MEDS ORDERED: LANTUS INSULIN10 ML SC (15:14)
[2016-10-24] MEDS ORDERED: JARDIANCE25 MG PO (15:15)
[2016-10-24 15:16] VITALS: BP 140/85; BMI 28.7
[2016-10-24 16:10] VITALS: BP 140/85
--- NOTE | 2016-10-24 17:02 | NUR ---
ON HEART MONITOR SHOWING SR, HR 76.
--- NOTE | 2016-10-24 17:55 | NUR ---
PATIENT HAS NOT VOIDED YET, WILL PASS THIS ALONG TO NEXT SHIFT.
--- NOTE | 2016-10-24 19:20 | NUR ---
ALERT/AWAKE ORIENTED X 4. DENIES PAIN OR ANY NEEDS. IV IN L WRIST WITH NS INFUSING AT 50ML/HR. BOTH SIDES OF FACE SYMETRICAL IN APPEARANCE. HAS BILATERAL STRONG HAND GOLD MARKER EQUALLY. 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 IV IN L WRIST WITH NS INFUSING AT 50ML/HR PATENT/INTACT. VISITOR PRESENT IN ROOM.
--- NOTE | 2016-10-24 19:38 | NUR ---
MRI STILL DOWN. NOTIFIED MAUREEN HE THAT PART IS IN ROUTE AND WILL DO IN AM
[2016-10-24 20:00] VITALS: BP 113/84
--- NOTE | 2016-10-24 21:50 | NUR ---
ADMIN SCHED MEDS. CHECKED BS AT 181, ADMIN HUMALOG 2 UNITS SC AND LANTUS 42 UNITS SCHED. STATED HE TAKES THIS AMOUT EVERY NIGHT. REQUESTED LIGHTS OFF TO SLEEP.
--- NOTE | 2016-10-25 02:08 | NUR ---
LYING ON LEFT SIDE. RR 18 EVEN U/L. NO S/S OF PAIN OR DISCOMFORT. FAMILY MEMBER PRESENT IN ROOM.
[2016-10-25 04:00] VITALS: BP 116/83
[2016-10-25 06:00] LABS: BASOPHILS 0.5 % (0-2); EOSINOPHILS 1.6 % (0-7); HEMOGLOBIN 12.8 g/dL (13.5-17.5); IMMATURE GRANULOCYTES 0.2 % (0-5); LYMPHOCYTES 21.8 % (15-50); MCH 27.9 pg (26.0-34.0); MCHC 31.2 g/dL (31.0-37.0); MCV 89.3 fL (80.0-100.0); MEAN PLATELET VOLUME 12.1 fL (7.4-10.4); MONOCYTES 12.1 % (2-11); NEUTROPHILS 63.8 % (40-80); PLATELET COUNT 219 10x3/uL (130-400); RBC 4.59 10x6/uL (4.20-6.10); RDW 14.1 % (11.5-14.5)
[2016-10-25 06:18] LABS: WBC 6.2 10x3/uL (4.8-10.8)
[2016-10-25 06:30] LABS: CALC OSMOLALITY 277 mosm/kg (275-300); CALCIUM 8.9 mg/dL (8.5-10.1); CARBON DIOXIDE 25.2 mmol/L (21.0-32.0); CHLORIDE - SERUM 103 mmol/L (98-107); CHOL - HDL RATIO 2.3 ratio (2.3-4.9); CHOLESTEROL, TOTAL 119 mg/dL (0-200); CREATININE - SERUM 0.9 mg/dL (0.6-1.3); HDL CHOLESTEROL 53 mg/dL (32-96); LDL CHOLESTEROL 57 mg/dL (0-100); LDL-HDL RATIO 1.1 ratio (1.5-3.5); POTASSIUM - SERUM 3.8 mmol/L (3.5-5.1); SODIUM 138 mmol/L (136-145); TRIGLYCERIDE 49 mg/dL (30-200); UREA NITROGEN 16 mg/dL (7-18); eGFR NON AFRICAN AMERICAN 90 mL/min (90-120)
[2016-10-25 06:46] LABS: GLUCOSE 110 mg/dL (74-106)
--- NOTE | 2016-10-25 07:34 | NUR ---
0730-AM ROUNDING DONE WITH NO NEW COMPLAINTS OF WEAKNESS OR TINGLING STATED PER PATIENT. REPORTS THAT HE WOULD LIKE TO BE ABLE TO GO HOME. AT BEDSIDE. ON HEART MONITOR SHOWING SR, HR 85. NS INFUSING TO LEFT WRIST AREA AT 50 CC/HR. BILATERAL SCD'S ARE ON. WILL CONTINUE TO MONITOR.
[2016-10-25 08:00] VITALS: BP 120/82
--- NOTE | 2016-10-25 08:05 | NUR ---
DR LEMONS HERE TO SEE PATIENT.
[2016-10-25 10:54] VITALS: Ht 177.8 cm; Wt 90.0 kg
[2016-10-25 12:00] VITALS: BP 95/71
[2016-10-25 13:12] LABS: HEMOGLOBIN A1C 8.9 % (4.8-6.0)
--- NOTE | 2016-10-25 14:23 | NUR ---
GAIL FROM MRI TO CALL AND REPORT THAT THE MACHINE IS STILL DOWN BUT THE ROYCE OSMAR IS HERE. SHE REPORTS THAT SHE DOES NOT KNOW HOW LONG IT WILL TAKE AND THAT EVERY PART HE PUTS ON BLOWS.
--- NOTE | 2016-10-25 14:42 | NUR ---
I INFORMED PHILIPP CHACON THAT THE MRI MACHINE IS STILL DOWN. NEW ORDERS RECEIVED.
[2016-10-25 16:00] VITALS: BP 125/78
--- NOTE | 2016-10-25 17:23 | NUR ---
EATING SUPPER WITH FAMILY PRESENT. INFORMED PATIENT THAT HE WILL BE STARTED ON ELIQUIS. WILL MONITOR.
[2016-10-25 20:00] VITALS: BP 142/90
--- NOTE | 2016-10-25 23:03 | NUR ---
NURSE ROUNDS 22:00 - PT LYING IN BED, AWAKE, ALERT, ORIENTED, AT BEDSIDE. PT DENIES ANY ACUTE CHANGES, AND STATES THAT HE HAS HAD A CVA INSTEAD OF THE INITIAL DX OF TIA. PT DENIES ANY NEEDS AT THIS TIME, IS IN NO ACUTE DISTRESS, AND RESTING COMFORTABLY. FIRST DOSE OF ELIQUIS GIVEN ORDERED, SIDE EFFECTS REVIEWED AND PT TEACHING DONE R/T S/S OF CVA. CONTINUE TO MONITOR CLOSELY.
[2016-10-26 04:00] VITALS: BP 124/69
--- NOTE | 2016-10-26 06:02 | NUR ---
PT AWAKE, ALERT, ORIENTED, SITTING UP IN BEDSIDE CHAIR. PT DENIES ANY NEEDS AT THIS TIME. AT BEDSIDE. CONTINUE TO MONITOR.
[2016-10-26 07:00] LABS: BASOPHILS 0.6 % (0-2); EOSINOPHILS 3.4 % (0-7); HEMATOCRIT 41.3 % (42.0-54.0); HEMOGLOBIN 13.2 g/dL (13.5-17.5); LYMPHOCYTES 25.9 % (15-50); MCH 28.4 pg (26.0-34.0); MEAN PLATELET VOLUME 11.6 fL (7.4-10.4); MONOCYTES 8.8 % (2-11); NEUTROPHILS 61.3 % (40-80); PLATELET COUNT 210 10x3/uL (130-400); RBC 4.64 10x6/uL (4.20-6.10); RDW 13.8 % (11.5-14.5); WBC 4.7 10x3/uL (4.8-10.8)
[2016-10-26 07:03] LABS: CALC OSMOLALITY 275 mosm/kg (275-300); CARBON DIOXIDE 24.2 mmol/L (21.0-32.0); CHLORIDE - SERUM 102 mmol/L (98-107); CREATININE - SERUM 0.9 mg/dL (0.6-1.3); GLUCOSE 146 mg/dL (74-106); SODIUM 136 mmol/L (136-145); UREA NITROGEN 15 mg/dL (7-18); eGFR NON AFRICAN AMERICAN 90 mL/min (90-120)
[2016-10-26 08:00] VITALS: BP 141/92
--- NOTE | 2016-10-26 09:51 | NUR ---
AWAKE AND ALERT. ORIENTED X3. NO C/O AT THIS TIME. LUNGS ARE CLEAR BILATERALLY, NO COUGH NOTED. SKIN IS INTACT WITHOUT REDNESS. SLIGHT EDEMA NOTED TO BILATERAL ANKLES. WILL MONITOR. IV TO LEFT WRIST IS PATENT WITHOUT REDNESS AT INSERTION SITE. SAT UP IN CHAIR AND ATE ALL OF BREAKFAST THIS AM. AT BEDSIDE.
[2016-10-26] MEDS ORDERED: ELIQUIS5 MG PO (10:11)
--- NOTE | 2016-10-26 11:40 | NUR ---
DISCHARGE TO HOME WITH FAMILY AMBULATORY. DISCHARGE INSTRUCTIONS GIVEN BOTH VERBALLY AND WRITTEN. ALL QUESTIONS ANSWERED. PATIENT AND FAMILY VERBALIZED UNDERSTANDING OF SAME. NEEDED PRESCRIPTIONS ESCRIBED TO PHARMACY OF CHOICE. IV TO LEFT WRIST D/C WITH CATHETER INTACT.
== END 2016-10-26 11:40 | disposition home or self-care (01) | DRG 65 ==
LOC: D.ER 12:15 → D.M2 13:56
PROVIDERS: Emergency Medicine; ADMIT Family Medicine
DX: I63.512 Cerebral infarction due to unspecified occlusion or stenosis of left middle cerebral artery (principal); G81.91 Hemiplegia, unspecified affecting right dominant side; E78.5 Hyperlipidemia, unspecified; I10 Essential (primary) hypertension; I25.10 Atherosclerotic heart disease of native coronary artery without angina pectoris; E11.65 Type 2 diabetes mellitus with hyperglycemia; R40.2412 Glasgow coma scale score 13-15, at arrival to emergency department; Z95.1 Presence of aortocoronary bypass graft; Z95.2 Presence of prosthetic heart valve; Z86.73 Personal history of transient ischemic attack (TIA), and cerebral infarction without residual deficits

== ENCOUNTER → 2018-10-28 13:01 | Outpatient (CLI) | payer MEDICARE, BC ==
[2016-10-25 10:54] VITALS: BMI 28.4
[~2018-10-28 13:01] MED LIST changes: +ELIQUIS5 MG PO; +JARDIANCE25 MG PO
== END | disposition home or self-care (01) ==
LOC: D.HCCARDIO 13:01
PROVIDERS: ATTEND Internal Medicine Cardiovascular Disease
DX: Z95.4 Presence of other heart-valve replacement (principal)